=== PATIENT | female | born 1980 ===

== ENCOUNTER 2018-04-14 08:42 | Outpatient (REF) | payer OTHER, SELFPAY ==
[2018-04-14 19:28] LABS: Cholesterol 171 mg/dL (50-200); Glucose 87 mg/dL (70-100); HDL Cholesterol 72 mg/dL (40-60); LDL CHOLESTEROL 86 mg/dL (<100); Triglyceride 98 mg/dL (30-150)
== END 2018-04-14 08:43 ==
LOC: NCHCN 08:42
PROVIDERS: PCP Internal Medicine; Visit Provider Nurse Practitioner Family
DX: Z00.00 Encounter for general adult medical examination without abnormal findings (principal); Z13.220 Encounter for screening for lipoid disorders; Z13.1 Encounter for screening for diabetes mellitus
CPT/HCPCS: 80061; 82947; 83721

== ENCOUNTER 2020-10-17 19:26 | Outpatient (REF) | payer OTHER, SELFPAY ==
--- OUTSIDE RECORDS SUMMARY | 2020-10-17 19:33 | XMS_ITS ---
:1980 Author Care Team Providers Name Role Phone ROXIE BIRMINGHAM MD Primary Care Provider [phone] PANCHITOJEFERSON MENDOZA High Speed Warper Tender [phone] Allergies Code Code System Name Reaction Severity Status Onset 258 RxNorm Clindamycin Rash ? Active ? Medications Name Status Start Date Stop Date ? ? Cenestin 0.45 mg tablet Completed 07/28/2008 01/08/20 09 1 (one) Tablet: Daily CitraNatal Assure 35 mg-1 mg-50 mg-300 mg oral pack Completed 06/06/2009 06/01/2011 One Misc: Daily Cleocin HCl 300 mg capsule Completed 07/06/200501/03 1 (one) Capsule: BID clonazepam 0.5 mg tablet Active ? Not magaly ilable Take 1 tablet 3 times a day by oral route. dicloxacillin 500 mg capsule Completed 05/18/2010 1 (one) Capsule: Four times daily Imitrex 100 mg tablet Active ? Not availa ble Take as needed by oral route. Mircette (28) 0.15 mg-0.02 mg (21)/0.01 mg (5) tablet Completed 07/06/2005 07/06/2005 1 Tablet: daily Mirena 20 mcg/24 hours (6 yrs) 52 mg intrauterine device Active ? Not available Take by intrauterine route. prochlorperazine Active ? Not available zolpidem 5 mg tablet Active ? Not availab le Take 1 tablet every day by oral route as needed. Problems Name Status Onset Date Source ? Insomnia Active ? History Replacement of Intrauterine Contraceptive Unknown ? History Device Intrauterine Device Check Unknown ? Histor y Evaluation Procedure Unknown ? History Procedure by Method Unknown ? History Procedures Date Name Performed by ? 04/16/2010 Delivery Information not avai lable Notes: Breech twins 08/10/2009 Transfer of Embryo Information not avai lable 09/02/2001 Breast Biopsy Information not avai lable 06/19/2019 MAMMO, Screening, Tomosynthesis, [facility] Radiology (Internal) Bilateral [address] [place], [place] [id number] (Work Place) Results Lab Results Date Name Specimen Result Interpretation Description Value Range Status Address ? 09/23/2020 Pathology Study TISS ? Report (see ? [facility] below) Hospital L ab (Internal) : [address] 09/23/2020 Pap Test, MISC ? Hpv see ? Final [facility] Thinprep, report Hospita l Lab Cervical (Interna l): [address] ? ? MISC ? Pap see ? Final [facility] report Hospital L ab (Internal) : [address] ? ? MISC ? Report (see ? Final [facility] below) Hospital L ab (Internal) : [address] 06/19/2019 Pap Test, MISC - Hpv see ? Final [facility] Thinprep, report Hospita l Lab Cervical (Interna l): [address] ? ? MISC - Pap see ? Final [facility] report Hospital L ab (Internal) : [address] ? ? MISC - Report (added) ? Corrected [facility] results Hospital Lab below (Internal) : [address] 01/25/2017 Venipuncture BLD ? Venpn* ? ? Final [facility] Hospital L ab (Internal) : [address] 01/25/2017 Glucose, Serum S ? g/r 87 mg/dL 74- [facility] or Plasma 106 [facility] l Lab mg/ (Internal) : dL [address] 01/25/2017 Lipid Panel, S ? Chol 144 mg/dL 50- [facility] Serum 200 Hospital L ab mg/ (Internal) : dL [address] ? ? S ? Trig 65 mg/dL 10- [facility] 150 Hospital L ab mg/ (Internal) : dL [address] ? ? S ? Hdl 56 mg/dL 40- [facility] 60 Hospital L ab mg/ (Internal) : dL [address] ? ? S ? Ldl 75 mg/dL 0-1 Final [facility] 30 Hospital L ab mg/ (Internal) : d[address] Past Encounters 09/23/2020 Atypical Squamous Cells of Undetermined Significance on Cervical Papanicolaou Smear Julien Myers MD: [address] [place] [address], Ph. 07/01/2020 Gynecologic Examination; Insomnia Julien Myers MD: [address] [place] [address], Ph. 06/19/2019 Gynecologic Examination; Screening Mammo graphy Julien Myers MD: [address] [place] [phone], Ph. Social History Tobacco Smoking Status Never Smoker Vaccine List Vaccine Type COVID-19, mRNA, LNP-S, PF, 100 mcg/0.5 m L dose 09/05/2020?0.5 mL 10/03/2020?0.5 mL influenza, seasonal, injectable 06/02/2009 influenza, seasonal, injectable, preserv ative free 08/10/2010?0.5 mL novel [id number], all formulation s 06/02/2009 rubella Td (adult), adsorbed 09/02/1997 Tdap 08/10/2010?0.5 mL varicella Plan of Care Reminders Provider Appointments None ? ? recorded. Lab None ? ? recorded. Referral None ? ? recorded. Procedures None ? ? recorded. Surgeries None ? ? recorded. Imaging None ? ? recorded. Vitals 09/23/2020 02:30PM Procedure 20 Weight Blood Pressure 61.1 kg 112/68 mm[Hg] 07/01/2020 11:20AM HME 20 Weight Blood Pressure 59.92 kg 108/64 mm[Hg] 06/19/2019 11:20AM HME 20 Height Weight BMI Blood Pressure 170.18 cm 61.28 kg 21.2 kg/m2 106/68 mm[Hg] 04/25/2018 01:40PM HME 20 Height Weight BMI Blood Pressure 170.18 cm 62.32 kg 21.5 kg/m2 102/68 mm[Hg] 11/23/2016 Height Weight Blood Pressure 170.82 cm 63.5 kg 118/64 mm[Hg] 02/04/2015 Height Weight Blood Pressure 170.82 cm 60.78 kg 104/60 mm[Hg] 08/07/2013 Height Weight Blood Pressure 170.82 cm 62.14 kg 106/66 mm[Hg] 07/04/2012 Height Weight Blood Pressure 170.82 cm 56.7 kg 110/64 mm[Hg] 08/30/2011 Height Weight Blood Pressure 170.82 cm 56.7 kg 108/70 mm[Hg] 06/01/2011 Height Weight Blood Pressure 170.82 cm 56.7 kg 98/58 mm[Hg] 05/29/2010 Height Weight Blood Pressure 170.82 cm 64.64 kg 90/58 mm[Hg] 09/14/2009 Height Weight Blood Pressure 170.82 cm 64.64 kg 106/66 mm[Hg] 03/09/2009 Height Weight Blood Pressure 170.82 cm 66.22 kg 102/60 mm[Hg] 02/06/2008 Weight Blood Pressure 65.32 kg 102/60 mm[Hg] 01/31/2007 Height Weight Blood Pressure 170.18 cm 63.5 kg 100/62 mm[Hg] 08/07/2006 Weight Blood Pressure 65.77 kg 112/60 mm[Hg] 01/04/2006 Height Weight Blood Pressure 170.18 cm 66.22 kg 104/60 mm[Hg] 12/08/2004 Height Weight Blood Pressure 170.18 cm 65.77 kg 110/70 mm[Hg]
--- OUTSIDE RECORDS SUMMARY | 2020-10-17 19:33 | XMS_ITS | Encounter Summary ---
:1980 Author Care Team Providers Name Role Phone Jhony Naidu MD Primary Care Provider [phone] Kasia Rosario Desk Operator [phone] Reason for Visit procedure Team Primary Care Physician Declined; Consent form signed Assessment and Plan 1. Atypical squamous cells of un determined significance on cervical Papanicolaou smear Since her last Pap was about 3 months ago, we will do a repeat with a colposcopy today. We will call her with the pathology and Pap smear results. I also will discuss advised follow-up at that t jenna. ? pap test, thinprep, cervic al ? colposcopy with biopsy and endocervical curettage (PROC) Discussion Note: None recorded.Patient educational handouts: No information available. Plan of Care Reminders Provider Appointments e 20 Julien Rey MD 07/07/2021 11:00AM Lab Pap Test, [facility] juan alberto Thinprep, Cervical 09/23/2020 Hospital Lab (Internal) Referral None recorded. ? ? Procedures Colposcopy with ? Biopsy and Endocervical 09/23/2020 Curettage (PROC) Surgeries None recorded. ? ? Imaging None recorded. ? ? Medications Name Start Date ? ? clonazepam 0.5 mg tablet ? Take 1 tablet 3 times a day by oral route. Imitrex 100 mg tablet ? Take as needed by oral route. Mirena 20 mcg/24 hours (6 yrs) 52 mg intrauterine haroldo ce ? Take by intrauterine route. prochlorperazine ? zolpidem 5 mg tablet ? Take 1 tablet every day by oral route as needed. Medications Administered None recorded. Vitals Weight Blood Pressure 134.7 lbs 112/68 mm[Hg] Results Lab Results Date Name Specimen Result Interpretation Description Value Range Status Address ? 09/23/2020 Pap Test, MISC ? Hpv see ? Final [facility] Thinprep, report Hospita l Lab Cervical (Interna l): [address] [place] [address] ? ? MISC ? Pap see ? Final [facility] Hospital L ab (Internal) : [address] [place] [address] ? ? MISC ? Report (see ? Final [place] [facility] below) Hospital ab (Internal) : [address] [place] [address] Allergies Code Code System Name Reaction Severity Onset 2582 RxNorm Clindamycin Rash ? ? Problems Name Status Onset Date Source ? Insomnia Active ? History Procedures Date Name Performed by ? 04/16/2010 Delivery Information not avai lable Notes: Breech twins 08/10/2009 Transfer of Embryo Information not avai lable 09/02/2001 Breast Biopsy Information not avai lable Vaccine List Vaccine Type COVID-19, mRNA, LNP-S, PF, 100 mcg/0.5 m L dose 09/05/2020?0.5 mL 10/03/2020?0.5 mL influenza, seasonal, injectable 06/02/2009 influenza, seasonal, injectable, preserv ative free 08/10/2010?0.5 mL novel [id number], all formulation s 06/02/2009 rubella Td (adult), adsorbed 09/02/1997 Tdap 08/10/2010?0.5 mL varicella Social History Tobacco Smoking Status Never Smoker Live alone or with others? with others Diet REGULAR Alcohol intake Occasional Number of children 2 Are you currently employed? Y Education 2 Year College Chewing tobacco none Most Recent Tobacco Use Screening 04/25/2018 Performs monthly self-breast exam N General stress level Medium Caffeine intake Moderate Exercise level Moderate Occupation [employer] Relationship Status Family History Relation Problem Onset Age of Age Notes Mother Migraine (No N/A (No Notes) Information) Mother Hypertensive disorder (No N/A (No No rose) Information) Father Crohn's disease (No N/A (No Notes) Information) Functional Status Unknown. Past Encounters 09/23/2020 Atypical Squamous Cells of Undetermined Significance on Cervical Papanicolaou Smear Julien Myers MD: [address] [place] [phone], Ph. History of Present Illness Note: <p>Her last two Pap smears, in June 2019 and June 2020, were both ASCUS/negative. She is here for a colposcopy today.</p> Review of Systems None recorded. Physical Exam ? Notes: <p>After discussing the proc edure with the patient, I did a speculum exam. I did the Pap smear. I then ap plied acetic acid to the cervix. I was not able to see the entire transformatio n zone. I could see the IUD strings approximately 3 cm from the cervix. I init dannielle did an endocervical curettage. Minimal tissue return. As I was doin g the ECC, I noted that there was some thickened white epithelium from approx imately 10:00 to 1:00 on the face of the cervix. I did a biopsy at 12:00. I use d Monsel solution to obtain hemostasis. She tolerated this well.
</p>
[2020-10-17 19:58] LABS: Abs Immature Grans 0.02 10^3/uL (0.0-0.06); Absolute Basophil Count 0.09 10^3/uL (0.0-0.2); Absolute Eosinophil Count 0.08 10^3/uL (0.0-0.7); Absolute Lymphocyte Count 1.85 10^3/uL (1.2-3.4); Absolute Monocyte Count 0.56 10^3/uL (0.1-0.8); Basophils % 1.3; Eosinophils % 1.1; HCT 38.9 % (36.0-46.0); HGB 12.9 g/dL (11.2-15.7); Immature Grans % 0.3; Lymphocytes % 25.7; MCH 32.2 pg (27.0-33.0); MCHC 33.2 % (32.0-36.0); MPV 10.2 fL (8.0-11.0); Monocytes % 7.8; Neutrophils % 63.8; Nucleated RBC 0 %; Platelet Count 291 10^3/uL (130-400); RBC 4.01 10^6/uL (3.93-5.22); RDW 11.9 % (11.7-14.6); RDW-SD 42.8 fL
[2020-10-17 20:28] LABS: Anion Gap 9.3 mmol/L (3-11); BUN 17 mg/dL (7-18); CO2 26.7 mmol/L (21.0-32.0); CREATININE 0.7 mg/dL (0.55-1.02); Calcium 9.5 mg/dL (8.5-10.1); Chloride 103 mmol/L (98-107); Glucose 92 mg/dL (74-106); Potassium 4.3 mmol/L (3.5-5.1); Sodium 139 mmol/L (136-145)
== END 2020-10-17 19:27 | disposition home or self-care (01) ==
LOC: NCHCN 19:26
PROVIDERS: PCP Nurse Practitioner Family; Visit Provider Physician Assistant
DX: Z01.818 Encounter for other preprocedural examination (principal)
CPT/HCPCS: 80048; 85025

== ENCOUNTER 2024-07-13 18:20 | Outpatient (REF) | payer MEDICAID, SELFPAY ==
--- NOTE | 2024-07-13 14:00 | SKI_PTH ---
PATIENT: Anabell Talley LOC: [facility] U#:[id number] AGE/SX: 44/F ROOM: RE07/13/[address]: Odalis Allison : 1980 BED: DIS: 07/13/2024 SPEC #: [id number] RECD: 07/13/24 18:34 STATUS: SELAM REQ #: [id number] JERONIMO: 07/13/24 14:[address] RECD BY: Evelia Barbosa ENTERED: 07/13/24 18:35 SP TYPE: MAYITO ALEGRIA DR: Sandy Hernadez Tissues: 1 - SKIN BIOPSY(SHAVE/PUNCH) Procedures: SKIN LEVEL 4 Comments: [id number]
--- OUTSIDE RECORDS SUMMARY | 2024-07-13 18:22 | XMS_ITS | Continuity of Care Document ---
Author Organization [facility] Address [address] [place] [address] Care Team Providers Care Gun Profiler Name Role Phone [facility], Jhony Joshi Primary Care Physician [facility]/20/24 - 03/20/[address] [address] Encounter Diagnosis Screening mammogram for breast cancer(Discharge Diagnosis) - 03/20/24 Discharge Disposition: Home or Self Care Attending Physician: Julien Myers MD Admitting Physician: Julien Myers MD Referring Physician: Julien Myers MD Allergies, Adverse Reactions, Alerts Substance Reaction Severity Status clindamycin Unknown Active clindamycin Skin rash Unknown Active Assessment and Plan Future Appointments Immunizations Given and Recorded Vaccine Date Status Refusal Reason SARS-CoV-2 (COVID-19) mRNA-1273 vaccine 10/03/20 R ecorded SARS-CoV-2 (COVID-19) mRNA-1273 vaccine 09/05/20 R ecorded influenza virus vaccine, inactivated 08/10/10 Sal rded influenza virus vaccine, inactivated 06/02/09 Sal rded tetanus/diphth/pertuss (Tdap) adult/adol 08/10/10 Recorded Novel [id number], all formulation 06/02/09 Recorded tetanus-diphth toxoids (Td) adult/adol 09/02/97 Re corded rubella virus vaccine 09/02/00 Recorded varicella virus vaccine 09/02/00 Recorded Medications cloBAZam 0 Refill(s) Start Date: 11/16/22 Status: Ordered estradiol 0.0375 mg/24 hours twice weekly transdermal film, extended release See Instructions, change patch twice a week, # 24 patches, 3 Refill(s), Pharmacy: [id number], 62.4, kg, 01/17/24 14:41:00 EDT, Weight Dosing Start Date: 01/17/24 Status: Ordered Mirena 52 mg intrauteral device 52 mg 1 EA, 0 Refill(s) Start Date: 11/16/22 Status: Ordered Vitamin B12 0 Refill(s) Start Date: 12/06/23 Status: Ordered Vitamin D3 0 Refill(s) Start Date: 12/06/23 Status: Ordered Problem List Condition Confirmation Course Effective Dates Status H ealth Status Informant Branchial cleft Confirmed Active Disturbance of sleep Confirmed Active History of meningitis Confirmed Active IUD contraception Confirmed Active Menopausal symptoms Confirmed Active Migraine headache Confirmed Active Anxiety with depression Confirmed Active Pain in neck Confirmed Active Procedures Procedure Date Related Diagnosis Body Site Status Pap Due - 12/2026 1 01/16/24 Co mpleted Colposcopy 2 09/15/20 Completed delivery 3 04/15/10 Compl eted Embryo transfer 08/09/09 Completed Breast biopsy sample 09/01/01 Comp leted 1Pap Due - 12/2026 02/04/15 Neg/Neg 06/19/19 ASCUS/Neg 07/01/20 ASCUS/Neg 09/16/20 ASCUS/ Neg 09/23/20 - Colpo - Benign 08/17/21 ASCUS/Neg 01/17/24 - Neg/Neg (5 year risk of CIN3+ is 0.31%??) 2Benign 3Breech Twins Social History Social History Type Response Tobacco Never tobacco user T obacco Use:. Sex Female Patient Care team information Care Team Personnel Name: [facility] Position: No Access Member Role: Primary Care Physician Address: Address: [address] [address]- Care Team Related Persons Name: SILVIA BURTON Address: Home [address] [place] [phone] Address: Mailing [address] [place] [phone] Name: EUNICE KABA
--- OUTSIDE RECORDS SUMMARY | 2024-07-13 18:22 | XMS_ITS | Referral Summary ---
Author Organization [facility] Address [address] [place] [address] Care Team Providers Care Education Associate Name Role Phone Jhony Naidu MD Primary Care Provider Social History Tobacco Use Types Packs/Day Years Used Date Smoking Tobacco: Never Assessed Comments Unknown Sex and Gender Information Value Date Recorded Sex Assigned at Not on file Legal Sex Female 18:18 EST Gender Identity Not on file Sexual Orientation Not on file Plan of Treatment Not on file Care Teams Education Associate Relationship Specialty Start Date End Date Jhony Naidu MD [address] [place] [address] PCP - General 10/19/09
--- OUTSIDE RECORDS SUMMARY | 2024-07-13 18:22 | XMS_ITS | Encounter Summary ---
Author Organization [facility] Address [address] [place] [address] Care Team Providers Care Rotating Field Assembler Name Role Phone Jhony Naidu MD Primary Care Provider [phone] Encounter Details Date Type Department Care Team (Late st Contact Info) Description 09/26/2020 Lab Requisition [facility] Pathology & Laboratory Medicine - [facility] [address] [place] [address] Julien Myers MD [address] [place] [address] [address] [place] [address] Encounter for other general examination Social History Tobacco Use Types Packs/Day Years Used Date Smoking Tobacco: Never Assessed Comments Unknown Sex and Gender Information Value Date Recorded Sex Assigned at Not on file Legal Sex Female 18:18 EST Gender Identity Not on file Sexual Orientation Not on file documented as of this encounter Plan of Treatment Not on file documented as of this encounter Procedures Procedure Name Priority Date/Time Associated Diagnosis Comments SURGICAL PATHOLOGY Today 09/23/2020 14 :58 EST documented in this encounter Results * SURGICAL PATHOLOGY (09/23/2020 14:58 EST) Final Diagnosis A. ENDOCERVIX, CURETTAGE: - Minute fragments of benign superficial squamous epithelium. - No evaluable glandular tissue present. B. CERVIX, 12 O'CLOCK, BIOPSY: - Squamous tissue with reactive atypia. 09/29/2020 10:01 [facility] Diagnosis Comment Strategic Accounts Manager slides of this case were reviewed at the intradepartmental consultation conference. 09/29/2020 10:01 [facility] Attestation By the signature below, the attending physician certifies that they have 1) personally conducted a gross and/or microscopic examination of the described specimen(s), and/or personally interpreted the results of laboratory testing of the described specimen(s), and 2) personally rendered or confirmed the above diagnosis. 09/29/2020 10:01 [facility] at 1001 Clinical History ASCUS Pap x2 09/29/2020 10:01 [facility] Gross Description A. Received in formalin labelled with proper patient identification (initials H, T) and not otherwise specified is an aggregate of a scant amount of white soft tissue (less than 0.1 by less than 0.1 by less than 0.1 cm). Entirely submitted in A1. B. Received in formalin labelled with proper patient identification (initials H, T) and not otherwise specified is a white-cm soft tissue (0.5 x 0.4 x 0.3 cm), and an aggregate of a scant amount of white soft tissue admixed with clear mucus (0.4 x 0.4 x 0.2 cm). The tissue is submitted intact in B1, and the aggregate is entirely submitted in B2. Gus Booker 09/27/2020 9:12 09/29/2020 10:01 [facility] Performing Lab [facility] 09/29/2020 10:01 [facility] Scanned Images 09/29/2020 10:01 [facility] Tissue ENTIRE WALL OF CERVIX / Unknown 09/23/2020 14:58 EST 09/26/2020 22:01 EST Tissue specimen (specimen) CERVIX UTERI STRUCTURE / Unknown 09/23/2020 14:58 EST 09/26/2020 22:01 EST us Julien Myers MD PATHOLOGY ORDERABLES Final Resul t [facility] [address] [place] [address] documented in this encounter Visit Diagnoses Diagnosis Encounter for other general examination documented in this encounter Care Teams Rotating Field Assembler Relationship Specialty Start Date End Date Jhony Naidu MD [address] [place] [address] PCP - General 10/19/09 documented as of this encounter
--- OUTSIDE RECORDS SUMMARY | 2024-07-13 18:22 | XMS_ITS | Encounter Summary ---
Author Organization [facility] Address [address] [place] [address] Care Team Providers Care Film Archivist Name Role Phone Jhony Naidu MD Primary Care Provider [phone] Bisi Andrew MD Primary Care Provider [phone] Encounter Details Date Type Department Care Team (Late st Contact Info) Description 01/31/2007 Results Only [facility] conversion [address] [place] [address] Lindsay Myers MD [address] [place] [address] [address] [place] [address] Social History Tobacco Use Types Packs/Day Years [...] Procedure Name Priority Date/Time Associated Diagnosis Comments CYTOPATHOLOGY Routine 01/31/2007 0:00 EDT documented in this encounter Results * CYTOPATHOLOGY (01/31/2007 0:00 EDT) Pathology Report: CYTOPATHOLOGY REPORT Reports generated via electronic interface contain original data; however they are lacking the format of the original report. Caution should be taken when reading/interpreti ng unformatted reports. Name: ? ANABELL BURTON ? Accession #: ? [id number] : ? 1980 (Age: 26) ??F ?Collect Date: ? 01/31/2007 Location: ? [facility] ? Receive Date: ? 02/03/2007 Provider: ?LINDSAY MYERS MD Copy to: ? Specimen/Source: ?ThinPrep Pap Test, Cervix/Endocervix, processed on [employer] ThinPrep Imaging System, with manual evaluation Last Menstrual Period: ? 01/19/07 Other: ? HPVA - HPV testing requested if ASC-US on the current ThinPrep Pap test. Additional clinical information: Previous paps WNL ? SPECIMEN ADEQUACY ? Satisfactory for Evaluation - transformation zone component present GENERAL CATEGORIZATION ? Negative for Intraepithelial Lesion or Malignancy ? Document reviewed and electronically signed by: ? JADEN Taylor(ASCP) ? Report Date: ??02/05/2007 11:06 End of Report [facility] 01/31/2007 02/03/2007 us Lindsay Myers MD PATHOLOGY ORDERABLES Final Resul t [facility] [address] [place] [address] documented in this encounter Visit Diagnoses Not on filedocumented in this encounter Care Teams Film Archivist Relationship Specialty Start Date End Date Jhony Naidu MD [address] [place] [address] PCP - General 10/19/09 Bisi Andrew MD [address] [place] [address] PCP - General 10/17/09 10/18/09 documented as of this encounter
--- OUTSIDE RECORDS SUMMARY | 2024-07-13 18:22 | XMS_ITS | Continuity of Care Document ---
Author Organization [facility] Address [address] [place] [address] Care Team Providers Care Gang Punch Operator Name Role Phone [facility] Primary [facility] Physician [facility] 12[facility]21/22 - 12/21/[address] [address] Encounter Diagnosis Screening mammogram for breast cancer(Discharge Diagnosis) - 12/21/22 Discharge Disposition: Home or Self Care Attending [...] rded tetanus/diphth/pertuss (Tdap) adult/adol 08/10/10 Recorded Novel [id number]-[id number], all formulation 06/02/09 Recorded tetanus-diphth toxoids (Td) adult/adol 09/02/97 Re corded rubella virus vaccine 09/02/00 Recorded varicella virus vaccine 09/02/00 Recorded Medications cloBAZam 0 Refill(s) Start Date: 11/16/22 Status: Ordered estradiol 0.025 mg/24 hours weekly transdermal film, extended release 1 patches, Topical, every week, Apply 1 patch every week by transdermal route., # 4 patches, 3 Refill(s), Pharmacy: [id number] Start Date: 12/13/22 Status: Ordered Mirena 52 mg intrauteral device 52 mg 1 EA, 0 Refill(s) Start Date: 11/16/22 Status: Ordered Problem List Condition Confirmation Course Effective Dates Status Health [facility] Informant Menopausal symptoms Confirmed Active Procedures Procedure Date Related Diagnosis Body Site Status Colposcopy 1 09/15/20 Completed delivery 2 04/15/10 Compl eted Embryo transfer 08/09/09 Completed Breast biopsy sample 09/01/01 Comp leted Due 08/2024 3, 4 Complete d 1Benign 2Breech Twins Neg/Neg 06/19/19 ASCUS/Neg 07/01/20 ASCUS/Neg 09/16/20 ASCUS/ - HR HPV Colpo benign 08/17/21 ASCUS/Neg 4Due 08/2024 Social History Social History Type Response Tobacco Never tobacco user T obacco Use:. Sex Female Patient Care team information Care Team Personnel Name: Jhony Friend MD Position: Physician Member Role: Primary Care Physician Address: Address: [address] [place] [phone] [place]
--- OUTSIDE RECORDS SUMMARY | 2024-07-13 18:22 | XMS_ITS | Encounter Summary ---
Author Organization [facility] Address [address] [place] [address] Care Team Providers Care Technical Producer Name Role Phone Jhony Naidu MD Primary Care Provider [phone] Encounter Details Date Type Department Care Team (Latest Contact Info) Description 08/17/2021 Lab Requisition [facility] Pathology & Laboratory Medicine - [facility] [address] [place] [address] Julien Myers MD [address] [place] [address] [address] [place] [address] Encounter for gynecological examination (general) (routine) without abnormal findings; Atypical squamous cells of undetermined significance on cytologic smear of cervix (ASC-US) Social History Tobacco Use Types Packs/Day Years [...] Procedure Name Priority Date/Time Associated Diagnosis Comments PAP TEST Today 08/17/2021 16:57 EST HPV DNA DETECTION WITH GENOTYPING, PCR Today 08/17/2021 16:57 EST documented in this encounter Results * HUMAN PAPILLOMAVIRUS (HPV) DETECTION-HIGH RISK TYPES (08/17/2021 16:57 EST) HPV other High Risk types, PCR Negative Negative 08/31/2021 7:17 [facility] Comment:No E6 or E7 mRNA is detected from HPV types 16,18,31,33,35,39,45,51,52,56,58,59,66, and 68 by tube washer mediated amplification. Papanicolaou smear specimen (specimen) CERVIX UTERI STRUCTURE / Unknown 08/17/2021 16:57 EST 08/29/2021 13:17 EST us Julien Myers MD MICROBIOLOGY - GENERAL ORDERABLE S Final Result [facility] [address] [place] [address] * PAP TEST (08/17/2021 16:57 EST) Specimens A. Cervix and/or Endocervix , ThinPrep Imaging System with Manual Evaluation 08/31/2021 7:17 [facility] Specimen Adequacy Satisfactory for Evaluation - transformation zone component present 08/31/2021 7:17 [facility] General Categorization Epithelial Cell Abnormality 08/31/2021 7:17 [facility] Descriptive Diagnosis Squamous Cell Abnormality - Atypical squamous cells, undetermined significance (ASC-US). 08/31/2021 7:17 [facility] Educational Comments [facility] recommends following ASCCP's 2012 Updated Consensus Guidelines for the Management of Abnormal Cervical Cancer Screening Tests and Cancer Precursors (JLGTD, 2013; 17(5):S1-S27). Consensus guidelines are available online at www.asccp.org. 08/31/2021 7:17 [facility] Attestation By the signature below, the attending physician certifies that they have personally conducted a gross and/or microscopic examination of the described specimens and rendered or confirmed the above diagnosis. 08/31/2021 7:17 [facility] at 0717 Clinical History Clinical History, Signs, Symptoms, Chief Complaint, Pertaining to This Order: SEE BELOW Hormone/Contrace ptive Use?: Yes Other Clinical History/Order Comments: 09/22 COLPO BENIGN /ASCUS NEG, 06/21 ASCUS NEG, 06/20 ASCUS NEG, 02/14 NEG/NEG 08/31/2021 7:17 EST [facility] HPV The result for the Human Papillomavirus (HPV) Detection-High Risk Types is Negative. No E6 or E7 mRNA is detected from HPV types 16,18,31,33,35,3 9,45,51,52,56,58 ,59,66, and 68 by tube washer mediated amplification.Te sting was performed on specimen [id number] and was resulted on 08/31/2021 0713 EST by KYRIE, LAB INSTRUMENT RESULTS IN 08/31/2021 7:17 EST [facility] Performing Lab [facility] 08/31/2021 7:17 EST [facility] Scanned Images 08/31/2021 7:17 EST [facility] Papanicolaou smear specimen (specimen) CERVIX UTERI STRUCTURE / Unknown 08/17/2021 16:57 EST 08/21/2021 14:51 EST us Julien Myers MD PATHOLOGY ORDERABLES Final Resul t [facility] [address] [place] [address] documented in this encounter Visit Diagnoses Diagnosis Encounter for gynecological examination (general) (routine) without abnormal findings Atypical squamous cells of undetermined significance on cytologic smear of cervix (ASC-US) Papanicolaou smear of cervix with atypical squamous cells of undetermined significance (ASC-US) documented in this encounter Care Teams Technical Producer Relationship Specialty Start Date End Date Jhony Naidu MD [address] [place] [id number] PCP - General 10/19/09 documented as of this encounter
--- OUTSIDE RECORDS SUMMARY | 2024-07-13 18:22 | XMS_ITS | Encounter Summary ---
Author Organization [facility] [place] [address] Care Team Providers Care Prep Cook Name Role Phone Sandy Hernadez CALLY Primary Care Provider + Reason for Visit * Reason Onset Date Comments Public Health Screening 10/13/2020 Encounter Details Date Type Department Care Team (Late st Contact Info) Description 10/13/2020 Telephone Primary Care at [facility] [address] [place] [phone] Chelsea Michael RN Public Health Screening Social History Tobacco Use Types Packs/Day Years Used Date Smoking Tobacco: Never Assessed Sex and Gender Information Value Date Recorded Sex Assigned at Not on file Gender Identity Not on file Sexual Orientation Not on file documented as of this encounter Miscellaneous Notes * Telephone Encounter - Chelsea Michael RN - 10/13/2020 2:29 PM EST Order faxed to [place], [place] covid office. [facility] states they can do the test and have results to us by 10/31. * Telephone Encounter - Chelsea Michael RN - 10/13/2020 2:25 PM EST ----- Message from KJ Johnston sent at 10/13/2020 2:04 PM EST ----- Good Afternoon This patient needs a covid test scheduled for 10/28 for surgery on 11/01. Thank You Sonia documented in this encounter Plan of Treatment Not on file documented as of this encounter Visit Diagnoses Diagnosis Encounter for preprocedure screening laboratory testing for COVID-19 documented in this encounter Care Teams Prep Cook Relationship Specialty Start Date End Date Sandy Hernadez APRN PCP - General Family Medicine 09/12/20 documented as of this encounter
--- OUTSIDE RECORDS SUMMARY | 2024-07-13 18:22 | XMS_ITS | Encounter Summary ---
Author Organization [facility] Address [address] [place] [address] Care Team Providers Care Dry Box Operator Name Role Phone Jhony Naidu MD Primary Care Provider [phone] Bisi Andrew MD Primary Care Provider + [phone] Encounter Details Date Type Department Care Team (Late st Contact Info) Description 02/06/2008 Results Only [facility] [place] [address] [place] [address] Lindsay Myers MD [address] [place] [address] [address] [place] [address] Social History Tobacco Use Types [...] Priority Date/Time Associated Diagnosis Comments CYTOPATHOLOGY Routine 02/06/2008 0:00 EDT documented in this encounter Results * CYTOPATHOLOGY (02/06/2008 0:00 EDT) Pathology Report: CYTOPATHOLOGY REPORT Reports generated via electronic interface contain original data; however they are lacking the format of the original report. Caution should be taken when reading/interpreti ng unformatted reports. Name: ? ANABELL BURTON ? Accession #: ? [id number] : ? 1980 (Age: 27) ??F ?Collect Date: ? 02/06/2008 Location: ? [facility] ? Receive Date: ? 02/09/2008 Provider: ?LINDSAY MYERS MD Copy to: ? Specimen/Source: ?ThinPrep Pap Test, Cervix/Endocervix, processed on [facility] ThinPrep Imaging System, with manual evaluation Last Menstrual Period: ? 01/11/08 Other: ? HPVA - HPV testing requested if ASC-US on the current ThinPrep Pap test. ? SPECIMEN ADEQUACY ? Satisfactory for Evaluation - transformation zone component present GENERAL CATEGORIZATION ? Negative for Intraepithelial Lesion or Malignancy INTERPRETATION ? Reactive cellular changes associated with inflammation present (includes repair). ? Document reviewed and electronically signed by: ? Lukas Pham MD ? Report Date: ??02/12/2008 13:10 End of Report [facility] 02/06/2008 02/09/2008 us Lindsay Myers MD PATHOLOGY ORDERABLES Final Resul t [facility] [address] [place] [address] documented in this encounter Visit Diagnoses Not on filedocumented in this encounter Care Teams Dry Box Operator Relationship Specialty Start Date End Date Jhony Naidu MD [address] [place] [address] PCP - General 10/19/09 Bisi Andrew MD [address] [place] [address] [place] [address] PCP - General 10/17/09 10/18/09 documented as of this encounter
--- OUTSIDE RECORDS SUMMARY | 2024-07-13 18:22 | XMS_ITS | Encounter Summary ---
Author Organization [facility] [place] [address] [place] [address] Care Team Providers Care Compliance Assistant Name Role Phone Sandy Hernadez CALLY Primary Care Provider + Encounter Details Date Type Department Care Team (Late st Contact Info) Description 01/27/2021 1:50 PM EDT Ancillary Procedure Radiology at [facility] [address] [place] [address] Joey Hoyos MD [address] [place] [address] Social History Tobacco Use Types Packs/Day Years Used Date Smoking Tobacco: Never Smokeless Tobacco: Never Alcohol Use Standard Drinks/Week Comments Yes 7 (1 standard drink = 0.6 oz pur e alcohol) Sex and Gender Information Value Date Recorded Sex Assigned at Not on file Gender Identity Not on file Sexual Orientation Not on file documented as of this encounter Plan of Treatment Not on file documented as of this encounter Procedures Procedure Name Priority Date/Time Associated Diagnosis Comments FILM LIBRARY STORAGE ONLY DX SPINE Routine 01/27/2021 1:47 PM EDT documented in this encounter Results * Film Library- Storage Only DX Spine (01/27/2021 1:47 PM EDT) Narrative [facility] - 01/27/2021 1:47 PM EDT This exam is auto-finalizing. It's purpose is for storage only. Joey Hoyos MD G FILM LIBRARY ORD ERABLES [place], [place] documented in this encounter Visit Diagnoses Not on filedocumented in this encounter Care Teams Compliance Assistant Relationship Specialty Start Date End Date Sandy Hernadez APRN PCP - General Family Medicine 09/12/20 documented as of this encounter
--- OUTSIDE RECORDS SUMMARY | 2024-07-13 18:22 | XMS_ITS | Encounter Summary ---
Author Organization [facility] [place] [address] Care Team Providers Care Casing Sewer Name Role Phone Sandy Hernadez APRN Primary Care Provider + Encounter Details Date Type Department Care Team (Late st Contact Info) Description 10/20/2020 External Results Pre-Admission Testing at [facility] [address] [place] [phone] Social History Tobacco Use Types Packs/Day Years Used Date Smoking Tobacco: Never Assessed Sex and Gender Information Value Date Recorded Sex Assigned at Not on file Gender Identity Not on file Sexual Orientation Not on file documented as of this encounter Plan of Treatment Not on file documented as of this encounter Procedures Procedure Name Priority Date/Time Associated Diagnosis Comments LAB SCAN Routine 10/20/2020 documented in this encounter Results * Scan Doc: Lab (10/20/2020) Historical Provider MD BRADLEY MGR SCAN EX T ORDR/RSLT documented in this encounter Visit Diagnoses Not on filedocumented in this encounter Care Teams Casing Sewer Relationship Specialty Start Date End Date Sandy Hernadez APRN PCP - General Family Medicine 09/12/20 documented as of this encounter
--- OUTSIDE RECORDS SUMMARY | 2024-07-13 18:22 | XMS_ITS | Encounter Summary ---
Author Organization [facility] Address [address] [place] [address] Care Team Providers Care Hosiery Repairer Name Role Phone Jhony Naidu MD Primary Care Provider [phone] Encounter Details Date Type Department Care Team (Late st Contact Info) Description 06/19/2019 Results Only [facility] [phone] Lindsay Myers MD [address] [place] [address] [address] [place] [address] Social History Tobacco Use Types Packs/Day Years [...] Name Priority Date/Time Associated Diagnosis Comments PAP TEST- RESULT ONLY Routine 06/19/2019 0:00 EDT documented in this encounter Results * PAP TEST- RESULT ONLY (06/19/2019 0:00 EDT) Pathology Report: CYTOPATHOLOGY REPORT Reports generated via electronic interface contain original data; however they are lacking the format of the original report. Caution should be taken when reading/interpret ing unformatted reports. Name: ? ANABELL BURTON ? Accession #: ? [id number] ? : ? 1980 (Age: 39) ??F ?Collect Date: ? 06/19/2019 ? Location: ? [facility] ? Receive Date: ? 06/22/2019 ? Provider: LINDSAY MYERS MD Copy to: ? Final Report SPECIMEN ADEQUACY ? Satisfactory for Evaluation - transformation zone component present GENERAL CATEGORIZATION ? Epithelial Cell Abnormality INTERPRETATION ? Squamous Cell Abnormality - Atypical squamous cells, undetermined significance (ASC-US). EDUCATIONAL NOTES/RECOMMENDAT IONS ? [facility] recommends following ASCCP's 2012 Updated Consensus Guidelines for the Management of Abnormal Cervical Cancer Screening Tests and Cancer Precursors (JLGTD, 2013; 17(5):S1-S27). ??Consensus guidelines are available online at www.asccp.org. Hormonal/Contrace ptive status: Intrauterine device Other: Additional clinical information: 02/14 NEG NEG Additional clinical information: Z01.419 Z11.51 Specimen/Source: ??Pap Test, Cervix/Endocervix , ThinPrep Imaging System with manual evaluation Document reviewed and electronically signed by: ? FRANKLIN JARVIS MD ? Report ??Date: 07/04/2019 09:41 HPV with Pap Test ? Date Ordered: ? 07/04/2019 ? Status: ?? Signed Out ?Date Complete: ? 07/07/2019 ? By: ??System Interface ? Date Reported: ? 07/07/2019 ? Interpretation RESULT: Negative for HPV. No E6 or E7 mRNA is detected from HPV types 16,18,31,33,35, 39,45,51,52,56,58 ,59,66, and 68 by wrapping clerk mediated amplification. Comments Document reviewed and electronically signed by: ? System Interface ? Report date: 07/07/2019 By the signature above, the attending physician certifies that he/she has personally conducted a gross and/or microscopic examination of the described specimens and rendered or confirmed the above diagnosis. End of Report [facility] 06/19/2019 06/22/2019 us Lindsay Myers MD PATHOLOGY ORDERABLES Final Resul t [facility] [address] [place] [address] documented in this encounter Visit Diagnoses Not on filedocumented in this encounter Care Teams Hosiery Repairer Relationship Specialty Start Date End Date Jhony Naidu MD [address] [place] [id number] PCP - General 10/19/09 documented as of this encounter
--- OUTSIDE RECORDS SUMMARY | 2024-07-13 18:22 | XMS_ITS | Encounter Summary ---
Author Organization [facility] Address [address] [place] [address] Care Team Providers Care Interactive Media Project Manager Name Role Phone Unavailable Primary Care Provider Unavailabl e Encounter Details Date Type Department Care Team (Late st Contact Info) Description 03/09/2009 Orders Only [facility] Laboratory Services - [facility] ([facility]) [address], [place] [id number] Julien Myers MD [address] [place] [address] [address] [place], [place] [id number] Social History Tobacco Use Types Packs/Day Years [...] Procedure Name Priority Date/Time Associated Diagnosis Comments HPV DETECTION, HIGH RISK TYPES Routine 03/09/2009 23:45 EDT CYTOPATHOLOGY Routine 03/09/2009 0:00 EDT documented in this encounter Results * HUMAN PAPILLOMA VIRUS DNA TEST (03/09/2009 23:45 EDT) Specimen Description Cervix, ThinPrep vial [facility] Result Negative for HPV types 16, 18, 31, 33, 35, 39, 45, 51, 52, 56, 58, 59, and 68. [facility] Report Status Final 03/24/2009 [facility] 03/09/2009 23:4 5 EDT 03/16/2009 23:45 EDT us Julien Myers MD MICROBIOLOGY - GENERAL ORDERABLE S Final Result [facility] [address] [place] [address] * CYTOPATHOLOGY (03/09/2009 0:00 EDT) Pathology Report: CYTOPATHOLOGY REPORT ? Reports generated via electronic interface contain original data; ? however they are lacking the format of the original report. ? Caution should be taken when reading/interpreti ng unformatted reports. ? Name: ? ANABELL BURTON ? Accession #: ? [id number] ? : ? 1980 (Age: 29) ??F ?Collect Date: ? 03/09/2009 ? Location: ? [facility] ? Receive Date: ? 03/11/2009 ? Provider: ?PETER ALISON MD ? Copy to: ? Specimen/Source: ?Pap Test, Cervix/Endocervix, ThinPrep Imaging System ? with manual evaluation ? Last Menstrual Period: ? 6/17/09 ? Other: ? HPVDX - HPV testing requested regardless of diagnosis on current ThinPrep Pap ?? test. ? SPECIMEN ADEQUACY ? Satisfactory for Evaluation ? - transformation zone component present ? GENERAL CATEGORIZATION ? Negative for Intraepithelial Lesion or Malignancy ? Document reviewed and electronically signed by: ? Bree Wiseman, [place](ASCP) ? Report Date: ??03/16/2009 08:11 ? End of Report ? [facility] 03/09/2009 03/11/2009 us Julien Myers MD PATHOLOGY ORDERABLES Final Resul t [facility] [address] [place] [address] documented in this encounter Visit Diagnoses Not on filedocumented in this encounter
--- OUTSIDE RECORDS SUMMARY | 2024-07-13 18:22 | XMS_ITS | Clinical Summary ---
Author Organization [facility] Address [facility] [place] [address] Care Team Providers Care Inside Polisher Name Role Phone Sandy Hernadez Baron ALAMO Primary Care Provider + Allergies Active Allergy Reactions Criticality Noted Date Comments Clindamycin Medium CIS - Rash Medications Medication Sig Dispensed Refills Start Date End Date Status clonazePAM (KlonoPIN) 0.5 mg Tablet TAKE ONE TABLET BY MOUTH EVERY DAY NEEDED 09/27/2020 Active traMADoL (Ultram) 50 mg Tablet Take 50 mg by mouth 2 times daily as needed. 07/19/2020 Active zolpidem (Ambien) 5 mg Tablet Take 5 mg by mouth nightly as needed. 07/09/2020 Active SUMAtriptan (Imitrex) 100 mg Tablet Take 100 mg by mouth 2 times daily as needed. Active levonorgestreL (levonorgestrel) 20 mcg/24 hours (6 yrs) 52 mg IUD Mirena 20 mcg/24 hours (6 yrs) 52 mg intrauterine device Take by intrauterine route. Active prochlorperazine (Compazine) 10 mg Tablet Take 1 tablet by mouth every 8 hours as needed. Active cyclobenzaprine (Flexeril) 10 mg Tablet Take 10 mg by mouth 3 times daily as needed for Muscle spasms. Active VALERIAN ORALIndications:for sleep Take 2 capsules by mouth nightly as needed. Indications: for sleep Active aspirin/acetaminoph en/caffeine (EXCEDRIN MIGRAINE ORAL) Take 1-2 tablets by mouth every 6 hours as needed (migraine). Active Active Problems Problem Noted Date Diagnosed Date Status post cervical spinal fusion 11/01/2020 Social History Tobacco Use Types Packs/Day Years Used Date Smoking Tobacco: Never Smokeless Tobacco: Never Alcohol Use Standard Drinks/Week Comments Yes 7 (1 standard drink = 0.6 oz pur e alcohol) Sex and Gender Information Value Date Recorded Sex Assigned at Not on file Gender Identity Not on file Sexual Orientation Not on file Last Filed Vital Signs Vital Sign Reading Time Taken Comments Blood Pressure 99/62 11/01/2020 1:32 PM EST Pulse 79 11/01/2020 1:15 PM EST Temperature 36.8 ??C (98.2 ??F) 11/01/2020 1:32 PM ES T Respiratory Rate 14 11/01/2020 1:32 PM EST Oxygen Saturation 97% 11/01/2020 1:32 PM EST Inhaled Oxygen Concentration - - Weight 60.8 kg (134 lb) 11/01/2020 8:37 AM EST Height 170.2 cm (5' 7) 11/01/2020 8:37 AM EST Body Mass Index 20.99 11/01/2020 8:37 AM EST Plan of Treatment Health Maintenance Due Date Last Done Comments CT Colonography 1980 Colonoscopy 1980 Colorectal Cancer Screening 1980 FIT DNA 1980 FIT 1980 Sigmoidoscopy (10 year) with FIT yearly 1980 Sigmoidoscopy 1980 HIV screen 02/18/1996 Hepatitis C Screening 02/18/1996 Hepatitis B vaccine (0-59 yrs) (1) 1997 Tetanus/Diphtheria/Pertussis Vaccines (1 - Tdap) 1997 HPV test 02/18/2008 PAP Smear 02/18/2008 Breast Cancer Share Decision Needed 2018 Breast Cancer screening 2018 Covid-19 Vaccine (3 - season) 05/03/202409/2020, 09/05/2020 Influenza (Flu) vaccine (1 o f 1 - Influenza standard series) 05/03/2024 Medical Devices Implanted Type Area Motorcoach Operator Device Identifier Shelf Expiration Date Model / Serial / Lot Graft Bone Filler 1cc Dbm Syringe Putty Vesuvius ([id number]) ([employer]oreq) - [id number] Implanted:Qty: 1 on 11/01/2020 by Joey Hoyos MD at [facility] IMPLANTS Neck [employer] - [employer] 06/01/2022 [id number] / / Cage 3 Screw Spinal [id number] Sa Ti ([id number]) ([employer]ore[employer]) - [id number] Implanted:Qty: 1 on 11/01/2020 by Joey Hoyos MD at [facility] [employer]PL[employer] Neck [employer] [id number] / / Screw Spinal 3.5x14mm Anterior Cervical St Sld Ti ([id number]) ([employer]q) - [id number] Implanted:Qty: 3 on 11/01/2020 by Joey Hoyos MD at [facility] [employer]PL[employer] Neck [employer] - [employer]SET [id number] / / Explanted Type Area Motorcoach Operator Device Identifier Shelf Expiration Date Model / Serial / Lot Pin Distraction 14mm Ant Cerv Fusn Ti ([id number]) - [id number] Explanted:Qty: 1 on 11/01/2020 at [facility] IMPLANTS Neck [employer] DP-14-TY / / Pin Distraction 14mm Ant Cerv Fusn Ti ([id number]) - [id number] Explanted:Qty: 1 on 11/01/2020 at [facility] [employer]PL[employer] Neck [employer] DP-14-TY / / Advance Directives * Attempt Cardiopulmonary Resuscitation - Inpatient (Latest Code Status on File) Date Activated Date Inactivated Comments 11/01/2020 9:37 AM 11/01/2020 6:53 PM Question Answer Comments Code Status decision made by: Patient Care Teams Inside Polisher Relationship Specialty Start Date End Date Sandy Hernadez APRN PCP - General Family Medicine 09/12/20
--- OUTSIDE RECORDS SUMMARY | 2024-07-13 18:22 | XMS_ITS | Encounter Summary ---
Author Organization [facility] [place] [address] Care Team Providers Care Permit Agent Name Role Phone Sandy Hernadez CERAMICS TEST ENGINEER Primary Care Provider + Encounter Details Date Type Department Care Team (Late st Contact Info) Description 12/06/2020 Ancillary Procedure Radiology at [facility] [address] [place] [phone] Joey Hoyos MD [address] [place] [address] Social History Tobacco Use Types Packs/Day Years [...] FILM LIBRARY STORAGE ONLY DX SPINE Routine 12/06/2020 12:00 AM EDT documented in this encounter Results * Film Library- Storage Only DX Spine (12/06/2020 12:00 AM EDT) Narrative [facility] - 12/07/2020 3:49 PM EDT This exam is auto-finalizing. It's purpose is for storage only. Joey Hoyos MD G FILM LIBRARY ORD ERABLES [place], [place] documented in this encounter Visit Diagnoses Not on filedocumented in this encounter Care Teams Permit Agent Relationship Specialty Start Date End Date Sandy Hernadez APRN PCP - General Family Medicine 09/12/20 documented as of this encounter
--- OUTSIDE RECORDS SUMMARY | 2024-07-13 18:22 | XMS_ITS | Continuity of Care Document ---
Author Organization [facility] Address [address] [place] [address] Care Team Providers Care Chief Wheelage Clerk Name Role Phone [facility], Jhony Joshi Primary Care Physician Encounter [id number] Date(s): 01/17/24 - 01/17/[address] [id number] Discharge Disposition: Home or Self Care Attending Physician: Julien Myers MD Admitting Physician: Julien Myers MD Referring Physician: Julien Myers MD Allergies, Adverse Reactions, Alerts Substance Reaction Severity Status clindamycin Unknown Active clindamycin Skin rash Unknown Active Assessment and Plan Future Appointments Diagnostic Tests Pending * PAP Test [facility] 01/17/24 Future Scheduled Tests Radiology* [facility] Mammo Screening Bilateral w/ Nelson 01/17/24 Immunizations Given and Recorded Vaccine Date Status Refusal Reason SARS-CoV-2 (COVID-19) mRNA-1273 vaccine 10/03/20 R ecorded SARS-CoV-2 (COVID-19) mRNA-1273 vaccine 09/05/20 R ecorded influenza virus vaccine, inactivated 08/10/10 Sal rded influenza virus vaccine, inactivated 06/02/09 Sal rded tetanus/diphth/pertuss (Tdap) adult/adol 08/10/10 Recorded Novel [id number], all formulation 06/02/09 Recorded tetanus-diphth toxoids (Td) adult/adol 09/02/97 Re corded rubella virus vaccine 09/02/00 Recorded varicella virus vaccine 09/02/00 Recorded Medications cloBAZam 0 Refill(s) Start Date: 11/16/22 Status: Ordered estradiol 0.0375 mg/24 hours twice weekly transdermal film, extended release See Instructions, change patch twice a week, # 24 patches, 3 Refill(s), Pharmacy: [id number], 62.4, kg, 01/17/24 14:41:00 EDT, Weight [...] Related Diagnosis Body Site Status Pap Due 08/2024 1, 2 08/16/21 Comp leted Colposcopy 3 09/15/20 Completed delivery 4 04/15/10 Compl eted Embryo transfer 08/09/09 Completed Breast biopsy sample 09/01/01 Comp leted Neg/Neg 06/19/19 ASCUS/Neg 07/01/20 ASCUS/Neg 09/16/20 ASCUS/ - HR HPV Colpo benign 08/17/21 ASCUS/Neg 2Due 08/2024 3Benign 4[place] Social History Social History Type Response Tobacco Never tobacco user T obacco Use:. Sex Female Patient Care team information Care Team Personnel Name: Jhony Hamilton MD Position: No Access Member Role: Primary Care Physician Address: Address: [address] Care Team Related Persons Name: SILVIA BURTON Address: Home [address] [place] [phone] Address: Mailing [address] [place] [address] [phone] Name: EUNICE KABA
--- OUTSIDE RECORDS SUMMARY | 2024-07-13 18:22 | XMS_ITS | Encounter Summary ---
Author Organization Replaced By [facility] [place] [place] [address] Care Team Providers Care Corrections Counselor Name Role Phone Sandy Hernadez CRIMINAL RESEARCHER Primary Care Provider + Reason for Visit * Auth/Cert Specialty Diagnoses / Procedures Referred By Braulio alcantar Referred To Contact Diagnoses HNP Procedures PRO ARTHRODESIS, ANT INTERBODY,DECOMPRESSION; CERVICAL BELOW C2 PRO INSERT BIOMCHN DEV INTERVERTEBRAL DSC SPC W/ARTHRD PRO ALLOGRAFT FOR SPINE SURGERY ONLY MORSELIZED ARTHRODESIS, ANT INTERBODY,DECOMPRESSION; CERVICAL BELOW C2 (WRVU 25) INSERTION INTERBODY BIOMECH DEV TO INTERVEBRAL DISC SPACE, EA INTERSPACE (WRVU 4.25) ALLOGRAFT FOR SPINE SURGERY ONLY; MORSELIZED (WRVU *) Referral ID Status Reason Start Date Expiration Date Visits Re quested Visits Authorized [id number] 1 1 Encounter Details Date Type Department Care Team (Late st Contact Info) Description 11/01/2020 10:03 AM EST - 11/01/2020 12:36 PM EST Surgery Operating Room [address] [address] [address] [place] [address] Joey Hoyos MD [address] [place] [address] ARTHRODESIS, ANT INTERBODY,DECOMPRESSIO N; CERVICAL BELOW C2 (WRVU 25) Social History Tobacco Use Types Packs/Day Years Used Date Smoking Tobacco: Never Smokeless Tobacco: Never Alcohol Use Standard Drinks/Week Comments Yes 7 (1 standard drink = 0.6 oz pur e alcohol) Sex and Gender Information Value Date Recorded Sex Assigned at Not on file Gender Identity Not on file Sexual Orientation Not on file documented as of this encounter Last Filed Vital Signs Vital Sign Reading Time Taken Comments Blood Pressure 108/67 11/01/2020 12:31 PM EST Pulse 66 11/01/2020 12:31 PM EST Temperature 36.6 ??C (97.9 ??F) 11/01/2020 11:[address] Respiratory Rate 15 11/01/2020 12:31 PM EST Oxygen Saturation 96% 11/01/2020 12:31 PM EST Inhaled Oxygen Concentration - - Weight 60.8 kg (134 lb) 11/01/2020 8:37 AM EST Height 170.2 cm (5' 7) 11/01/2020 8:37 AM EST Body Mass Index 20.99 11/01/2020 8:37 AM EST documented in this encounter Discharge Instructions * Patient Instructions* Vladislav Conti PA - 11/01/2020 9:18 AM EST Full recovery will depend on your having a strong, positive attitude, setting small goals for improvement and working steadily to accomplish each goal. FOLLOW UP APPOINTMENTS: You will be scheduled for a follow-up appointment four to six weeks after surgery with a Physician???s Electronic Prepress System Operator at the surgeon???s office. You will have a follow up appointment with the neurosurgeonin three months. If you have sutures that need to be removed, a suture removal appointment will be made for 10-14 days after surgery. If you had hardware, you may need x-rays done at [facility] prior to your follow up appointments. This will be arranged ahead of time by the office. MEDICATIONS: ??? Avoid your Excedrin Migraine for a week if possible to reduce bleeding risk. ??? Take your medicine at the time your doctor ordered. ??? Keep a list of your medicines, vitamins, and herbal supplements you take. Keep this list with you at all times. Show it to your caregiver at every visit. Keep the list up-to-date. ??? Ask your caregiver or pharmacist to write an explanation of each medicine you are taking. This should include: why you are taking it, possible side effects, best time of day to take it, what foods to take the medication with or foods to avoid, and when to stop taking it. ??? Only take [id number] or prescription medicine for pain, discomfort or fever as directed by your caregiver. ??? Consult your doctor or pharmacist with any questions. NEW MEDICATIONS AT DISCHARGE: []None []Given prescriptions in office preoperatively OR: Medication Dose/Route/ Frequency Prescription given? Reason for medication Medscape monograph discussed []Yes []No []Yes []No []Yes []No []Yes []No PAIN: ??? It is normal to have pain after your surgery; especially in the neck and upper back. ??? This does not mean that the procedure was unsuccessful or that your recovery will be delayed. ??? Arm and/or leg aching is also not uncommon. o This is primarily caused by inflammation of the previously compressed nerve. o The discomfort will gradually decrease as the nerve continues to heal. ??? You may also experience muscle spasms across your back and into your extremities. ??? Medications will be given to control pain and decrease spasm intensity. ??? Moist heat and/or ice and frequent repositioning may also be helpful. DIET: ??? You may adjust your diet back to normal as your appetite returns. ??? Be sure to drink plenty of fluids, particularly water, and eat whole grain cereals, fruits and fruit juices to combat constipation that is sometimes caused by pain medications. ??? If constipation does occur, an over the counter laxative is acceptable. ??? Call your surgeon if you experience persistent nausea and vomiting. ACTIVITY: ??? Increase your activity slowly. Daily walking is the best exercise. Try to increase your distance a little each day. Go at a pace that doesn???t make you too tired or cause too much pain. ??? It is normal to tire easily for the first week or so after you return home. ??? DO NOT lift anything over five pounds. Keep in mind a gallon of milk weighs eight pounds. Do not lift anything that you cannot easily lift with one hand. ??? Sexual relations may be resumed during the recovery period, but positions that strain the neck or cause pain should be avoided. ??? Consult your surgeon in regards to your driving status. There are no set time restrictions. Usecommon sense and do not attempt to resume driving until you feel completely comfortable to drive inand uninhibited manner. ACTIVITY (continued): ??? It is recommended that you do not drive for the first 1-2 weeks or while taking narcotic pain relievers. Please call the office with questions. ??? You may resume other physical activities including work only after consulting with your treating physician. POST ANESTHESIA/SEDATION: ??? You have received medication for sedation and comfort during your procedure. Because these havenot completely left your system, please observe the following precautions: o Plan to relax for the next several hours o DO NOT drive or operate machinery until the day after your procedure, longer as recommended by your surgeon o Avoid alcohol for the next 24 hours o Do not make any important personal or business decisions today BANDAGE/SHOWERING: You may have Dermabond over the incision (typically a purple glue like substance), with inner sutures that do not need to be removed. The Dermabond will gradually fall off. You may have sutures that require removal. If these are used you will be scheduled for a suture removal appointment within 10 to 14 days of the procedure. ??? You may shower after three to five days. ??? Do NOT scrub the incision. ??? Pat the area dry with a towel after showering. ??? Avoid soaking (baths, hot tubs, swimming, etc) until approximately two weeks after your surgery, when your wound is all the way healed. SEEK IMMEDIATE MEDICAL CARE/CALL YOUR SURGEON IF: ??? There is redness, swelling or increasing pain at the wound. ??? You notice purulent (colored, puss-like) drainage coming from the wound. ??? You notice a foul smell coming from the wound or bandage. ??? You experience urinary problems. ??? You experience any NEW weakness or numbness in your arms or legs. SEEK IMMEDIATE MEDICAL CARE/CALL YOUR SURGEON IF (continued): ??? You develop an oral temperature about 101 degrees F. ??? There is a breaking open of the wound. The edges do not stay together after the sutures or tapehas been removed. ??? There is persistent bleeding from an incision. ??? You have increasing swelling in the neck. ??? You develop difficulty breathing - Call 911. If you have questions, please call [facility] at [phone], during business hours of Saturday through Saturday from 8:00 a.m. until 4:00 p.m. In case of emergency during non-business hours, please call the same main number and follow the prompts to page the neurosurgeon obiee obia solution architect. SMOKING CESSATION INFORMATION: ??? [place] QUITLINE: ??? [place] QUITLINE: ??? [email or web address] If you smoke, stop now! Smoking may impede healing. MAKE SURE YOU: ??? Understand these instructions. ??? Will seek medical care if you are feeling poor, or get worse. ??? Will call the surgeon???s office with any questions or concerns at : [phone] * Attachments The following attachments cannot be sent through Care Everywhere. * Cervical Spinal Fusion: Post-op (Beninese) documented in this encounter Medications at Time of Discharge Medication Sig Dispensed Refills Start Date End Date SUMAtriptan (Imitrex) 100 mg Tablet Take 100 mg by mouth 2 times daily as needed. levonorgestreL (levonorgestrel) 20 mcg/24 hours (6 yrs) 52 mg IUD Mirena 20 mcg/24 hours (6 yrs) 52 mg intrauterine device Take by intrauterine route. prochlorperazine (Compazine) 10 mg Tablet Take 1 tablet by mouth every 8 hours as needed. cyclobenzaprine (Flexeril) 10 mg Tablet Take 10 mg by mouth 3 times daily as needed for Muscle spasms. VALERIAN ORALIndications:for sleep Take 2 capsules by mouth nightly as needed. Indications: for sleep aspirin/acetaminophen/c affeine (EXCEDRIN MIGRAINE ORAL) Take 1-2 tablets by mouth every 6 hours as needed (migraine). clonazePAM (KlonoPIN) 0.5 mg Tablet TAKE ONE TABLET BY MOUTH EVERY DAY NEEDED 09/27/2020 traMADoL (Ultram) 50 mg Tablet Take 50 mg by mouth 2 times daily as needed. 07/19/2020 zolpidem (Ambien) 5 mg Tablet Take 5 mg by mouth nightly as needed. 07/09/2020 documented as of this encounter Progress Notes * Kevin Brown RN - 11/01/2020 4:47 PM EST Anabell Talley discharged per provider order to home via . All IV???s removed. Discharge instructions reviewed with patient and . All questions or concerns answered at this time. Patient encouraged to call with any further questions or concerns. Copy of After Visit Summary given to patient at time of discharge. All personal belongings returned to patient, including prescription medications. Patient assisted to personal vehicle via staff member and wheelchair. Kevin Brown RN, 11/01/2020 * Velia Fry RN - 11/01/2020 1:30 PM ESTSummary: PACU s/p ACDF Uneventful PACU recovery. Assessment, vital signs, intake/output normal, refer to Flowsheet for complete details. Report given to med/surgery center administrator. Pt transported to their overnight room via hospital bed. documented in this encounter H&P Notes * Vladislav Conti PA - 11/01/2020 9:17 AM EST Patient Name: Anabell Talley Patient Age: 40 y.o. Birthdate: 1980 Admit date: 11/01/2020 Attending Physician: Joey Hoyos MD The patient's history and physical exam have been reviewed and completed. There has been no interval change from that of the pre-operative history and physical exam done within the last 30 days. documented in this encounter Miscellaneous Notes * Plan of Care - Kevin Brown RN - 11/01/2020 4:15 PM EST Problem: Adult Inpatient Plan of Care Goal: Plan of Care Review Outcome: Ongoing (Interventions Implemented as Appropriate) Flowsheets (Taken 11/01/2020 1614) Plan of Care Reviewed With: patient Progress: improving Goal: Patient-Specific Goal (Individualized) Outcome: Ongoing (Interventions Implemented as Appropriate) Flowsheets (Taken 11/01/2020 1614) Anxieties, Fears or Concerns: NONE Individualized Care Needs: NONE Patient-Specific Goals (Include Timeframe): NONE Goal: Absence of Hospital-Acquired Illness or Injury Outcome: Ongoing (Interventions Implemented as Appropriate) Goal: Optimal Comfort and Wellbeing Outcome: Ongoing (Interventions Implemented as Appropriate) Goal: Readiness for Transition of Care Outcome: Ongoing (Interventions Implemented as Appropriate) * Op Note - Joey Hoyos MD - 11/01/2020 10:20 AM EST [facility] Operative Note [facility] [address] [place] [address] Patient Name: Anabell Talley : [id number] MR#: [id number] Case Date: 11/01/2020 Case Scheduled Time: 1003 Surgeon: Surgeon(s) and Role: * Joey Hoyos MD - Primary * Vladislav Conti PA - Physician Electronic Prepress System Operator Preoperative diagnosis: HNP Postoperative diagnosis: HNP Procedure(s) (LRB): ARTHRODESIS, ANT INTERBODY,DECOMPRESSION; CERVICAL BELOW C2 (WRVU 25) (Bilateral) INSERTION INTERBODY BIOMECH DEV TO INTERVEBRAL DISC SPACE, EA INTERSPACE (WRVU 4.25) (Bilateral) ALLOGRAFT FOR SPINE SURGERY ONLY; MORSELIZED (WRVU *) (Bilateral) MODIFIER [address] (Bilateral) Actual procedure: C6/7 anterior discectomy and instrumented fusion using screw fixated biomechanical device and demineralized bone matrix. Use of the high powered operative microscope. Intraoperativefluoroscopy. Anesthesia: General Estimated Blood Loss: * No values recorded between 11/01/2020 10:20 AM and 11/01/2020 11:21 AM * Specimens removed during surgery: None Drains: * No LDAs found * Surgical Closure: Primary Closure - skin incision is completely closed without any wires, alexandrea, drains or other devices Disposition: awakened from anesthesia, extubated and taken to the recovery room in a stable condition, having suffered no apparent untoward event. Condition: doing well without problems Complications: none (Please see the Surgical Encounter Summary for any Implant and Specimen details pertinent to this patient.) Findings: large hnp. Excellent placement of interbody device and screws. No complications or problems. No csf. No unusual bleeding. No motor discharges. Sponge and needle counts correct. Correct level confirmed at multiple points throughout the surgery with intraoperative fluoroscopy and of course the intraoperative findings. Surgical Indications: Anabell Talley is a 40 y.o. year old female who is suffering from a disc herniation at C6/7. Please refer to my office notes for details of presentation, findings on exam, and medical decision making. she has requested that we consider surgical treatment of this condition. Pros and cons, rationale and risks, options and alternatives have been thoroughly reviewed. The patient acknowledges the extensive list of risk of this surgery as explained in no uncertain terms. The patient acknowledges that I cannot provide a guarantee regarding the success of the procedure, the avoidance of complication, or the durability of the result. There has been ample opportunity for the patient to ask and have answered any and all questions, seek any additional information needed to make aninformed decision, or seek additional professional opinion if desired. Understanding all of this, she requests that we proceed with operation. Procedure Description: Anabell Talley was brought into the operating room. she was able to position herself on the operative table with the head in the savannah gel horseshoe headrest. she was comfortable here and had no new symptoms. General endotracheal anesthetic was induced by the spooler. I did not manipulate the head or neck. The neck was then prepped and draped in usual sterile fashion. We paused to confirm the patient's name and identifying information, site and type of surgery to be performed, presence of films if needed, availability of all anticipated necessary equipment and implants, administration of antibiotics and discussion of all other data relevant and required by the preoperative check-list. Once this had all been confirmed, we made our incision horizontally in the neck with a number 10 blade in a location that avoided her midline cleft surgical scar. Dissection of the subcutaneous tissues was carried out with the electrocautery. The platysma was opened with the same. It was deficient medially. There was no difficulty due to the midline cleft encountered with our dissection. We then utilized a blunt dissection technique, keeping the trachea anteromedial and the carotid sheath and its contents posterolateral. This allowed us to arrive at the prevertebral fascia. This layer was clarified with a Kitner. We then confirmed our level fluoroscopically, using a bent spinal needle as a marker. The longus coli muscles were elevated with the monopolar electrocautery. We then deployed the Sau[place]a table based retractor system. We used the small, tapered blades, the tips of which were located beneath the longus coli. We then implanted [place] distracting pins and confirmed their location fluoroscopically.The anterior annulus was then incised with the15 blade. Disc material was removed with straight and upbiting curettes, pituitary instruments and the 2 and 3mm Kerrisons. The high speed drill was utilized with the coarse daniela barrel corpectomy bit in orderto create a smooth, symmetric channel through the disc space and also to abrade the endplates, preparing them for acceptance of the interbody substrate at the end of the case. Once the posterior annulus was visualized, the high powered operative microscope was brought in. The posterior annulus and posterior longitudinal ligament were opened centrally allowing removal of the disc herniation. We then opened the PLL widely using the 1 and 2 mm Kerrisons. Standard foraminotomy was carried out bilaterally to an extent sufficient to satisfactorily decompress the nerve roots. The degree of decompression was determined by interrogating the visible interfaces between bone and the thecal sac and nerve roots using the micro-hook. Once satisfactory decompression had been achieved, the distraction wasrelaxed and hemostasis was achieved. At this point, the dura was bulging up into the decompressed disc space, soft and pulsatile. There was no bleeding.Once the disc space was prepared, it was sized for an appropriate [place] biomechanical screw fixated interbody device. A 7mm device was chosen and soaked in antibiotic solution. It was then packed with demineralized bone matrix and inserted under gentle distraction. The distraction was released. The security of the device was confirmed through direct interogation. The [place] pins were removed. The pin holes were filled with Floseal. The device was affixed with 3 14mm screws. These were torqued per the video editor's specifications.The retractors were removed. The soft tissues were inspected to ensure meticulous hemostasis. The carotid f elt normal. The wound was flushed with antibiotic irrigant. The effluent was crystal clear. The platysma was closed with inverted 3-0 Vicryl sutures. The subcuticular layer was closed with a running 5-0 PDS. The skin edges were approximated with Dermabond, Benzoin and paper tape. The patient was then allowed to awaken from anesthetic and transferred to the post-anesthesia care unit in stable condition. Infection Bundle used? N/A Vladislav Conti PA-C worked under my direction for the duration of the operative session. The licensed loan officer assistant adequately prepped the operative site and maintained the best possible exposure of anatomy incident to the procedure. Joey Hoyos MD 11/01/2020 documented in this encounter Plan of Treatment Not on file documented as of this encounter Procedures Procedure Name Priority Date/Time Associated Diagnosis Comments XR FLUORO NO RAD <1HR - OR USE Routine 11/01/2020 11:13 AM EST MODIFIER LISSET SPINE - [place] 11/01/2020 9:55 AM EST HNP Allograft For Spine Surgery Only Morselized (76805) 11/01/2020 9:55 AM EST HNP Insert Biomchn Dev Intervertebral Dsc Spc W/Arthrd (71343) 11/01/2020 9:55 AM EST HNP Arthrodesis, Ant Interbody,Decompression ; Cervical Below C2 (50799) 11/01/2020 9:55 AM EST HNP IMPLANTABLE DEVICES SCAN 11/01/2020 12:00 AM EST POCT URINE Routine 11/01/2020 documented in this encounter Results * XR Fluoro No Rad <1Hr - OR Use (11/01/2020 11:13 AM EST) Narrative RAD - 11/01/2020 11:57 AM EST This exam is auto-finalizing. No interpretation was done. Joey Hoyos MD IMG FLUORO ORDERABLE [place], [place] * SCAN DOC: IMPLANTABLE DEVICES (11/01/2020 12:00 AM EST) Unknown MEDIA MGR SCAN EXT O RDR/RSLT * POCT urine (11/01/2020) POC Urine HCG Negative Negative - Negative POC Control Internal Controls Acceptable 11/01/2020 Rosendo Oakley Tristian NICHOL POINT OF CARE TEST ORDERABLES documented in this encounter Visit Diagnoses Not on filedocumented in this encounter Admitting Diagnoses Diagnosis Status post cervical spinal fusion Arthrodesis status documented in this encounter Administered Medications Inactive Administered Medications - up to 3 most recent administrations Medication Order MAR Action Action Date Dose Rate Site cyclobenzaprine (Flexeril) tablet 10 mg 10 mg, Oral, 3 TIMES DAILY PRN, Starting on Sat11/01/20 at 1328, Until Sat11/01/20 at 1848, Muscle spasms, Routine Given 11/01/2020 4:22 PM EST 10 mg diazePAM (Valium) tablet 5 mg 5 mg, Oral, ONCE PRN, 1 dose, Starting on Sat11/01/20 at 1136, Until Sat11/01/20 at 1234, spasm, PACU Recovery, Routine Given 11/01/2020 12:34 PM EST 5 mg famotidine (Pepcid) (10 mg/mL) injection 20 mg 20 mg, Intravenous, ONCE, 1 dose, On Sat11/01/20 at 0845, Day of Surgery (Day of Procedure), Routine Given 11/01/2020 8:45 AM EST 20 mg fentaNYL (pf) (50 mcg/mL) multi-dose injection 12.5-25 mcg 12.5-25 mcg, Intravenous, EVERY 5 MIN PRN, Starting on Sat11/01/20 at 1136, Until Sat11/01/20 at 1329, Pain, Give 12.5 mcg every 5 minutes PRN for mild to moderate pain (1-5) Give 25 mcg every 5 minutes PRN for moderate to severe pain (6-10). Hold for respiratory rate less than 10 per minute. Maximum dose 250 mcg over one hour. If ordered with hydromorphone or morphine, give hydromorphone or morphine first and use fentanyl for breakthrough pain., PACU Recovery, Routine Given 11/01/2020 12:46 PM EST 12.5 mcg Given 11/01/2020 12:31 PM EST 12.5 mcg Given 11/01/2020 12:22 PM EST 12.5 mcg lidocaine-EPINEPHrine (1% - 1:100,000) injection ONCE PRN, Starting on Sat11/01/20 at 1021, Until Sat11/01/20 at 1327, Intra-Operative (Intra-Procedure), Routine Given 11/01/2020 10:21 AM EST 7 mLs ondansetron (pf) (Zofran) (2 mg/mL) injection 4-8 mg 4-8 mg, Intravenous, EVERY 8 HOURS PRN, Starting on Sat11/01/20 at 1329, Until Sat11/01/20 at 1848, Nausea, Vomiting, 4 mg, Oral, EVERY 8 HOURS PRN, Nausea, Vomiting If multiple antiemetics are ordered, use ondansetron first. Start with 4mg and if ineffective in 30 minutes, give an additional 4mg., Routine ondansetron (Zofran) tablet 4-8 mg 4-8 mg, Oral, EVERY 8 HOURS PRN, Starting on Sat11/01/20 at 1329, Until Sat11/01/20 at 1848, Nausea, Vomiting, If multiple antiemetics are ordered, use ondansetron first. PO Preferred. If patient unable to take PO, may give IV if ordered. Start with 4mg and if ineffective in 45 minutes, give an additional 4mg. If unable to take PO, may give IV., Routine prochlorperazine (Compazine) (5 mg/mL) injection 10 mg 10 mg, Intravenous, EVERY 6 HOURS PRN, Starting on Sat11/01/20 at 1329, Until Sat11/01/20 at 1848, Nausea, Nausea/Vomiting, If multiple antiemetics are ordered, use ondansetron first. If ondansetron ineffective use prochlorperazine. Only give IV if unable to take PO, Routine prochlorperazine (Compazine) tablet 10 mg 10 mg, Oral, EVERY 6 HOURS PRN, Starting on Sat11/01/20 at 1329, Until Tu11/01/20 at 1848, Nausea, Nausea/Vomiting, If multiple antiemetics are ordered, use ondansetron first. If ondansetron ineffective use prochlorperazine. PO Preferred. If patient unable to take PO, may give IV if ordered., Routine scopolamine (TRANSDERM-SCOP) 1 mg over 3 days patch 1 patch 1 patch, Transdermal, ONCE, 1 dose, On Sat11/01/20 at 0845, Day of Surgery (Day of Procedure), Routine Patch Applied 11/01/2020 8:45 AM EST 1 patch 01- Ear Behind (Left) scopolamine (TRANSDERM-SCOP) 1 mg patch Patch Verification Transdermal, 2 TIMES DAILY, First dose on Sat11/01/20 at 0900, Until Discontinued, Verify scopolamine 1 mg patch., Recovery (Recovery-Hospital Unit) sodium chloride 0.9 % (flush) flush 3 mL 3 mL, Intravenous, EVERY 12 HOURS SCHEDULED (2 times per day), First dose on Sat11/01/20 at 1415, Until Discontinued, Routine Given 11/01/2020 1:44 PM EST 3 mLs traMADoL (Ultram) tablet 50 mg 50 mg, Oral, EVERY 6 HOURS PRN, Starting on Sat11/01/20 at 1329, Until Sat11/01/20 at 1848, Pain, Routine Given 11/01/2020 4:22 PM EST 50 mg documented in this encounter Active and Recently Administered Medications Times are shown in EST. Scheduled Medication Order 10/30/2020 10/31/2020 11/01/2020 ceFAZolin (Ancef) 2 g in dextrose 5% 100 mL infusion (COMPLETED) 2 g, Intravenous, ONCE, 1 dose, On Sat11/01/20 at 0845, Administer over 30 Minutes, To be administered upon arrival to the OR within one hour prior to incision., Day of Surgery (Day of Procedure), Indication for (Active or Suspected): Prophylaxis 1010 (Given - Provid er: Rosendo Lubin CRNA) famotidine (Pepcid) (10 mg/mL) injection 20 mg (COMPLETED) 20 mg, Intravenous, ONCE, 1 dose, On Sat11/01/20 at 0845, Day of Surgery (Day of Procedure), Routine 0845 (Given - Provid er: Sarah Romero RN) scopolamine (TRANSDERM-SCOP) 1 mg over 3 days patch 1 patch (COMPLETED) 1 patch, Transdermal, ONCE, 1 dose, On Sat11/01/20 at 0845, Day of Surgery (Day of Procedure), Routine 0845 (Patch Applied - Provider: Sarah Romero RN) scopolamine (TRANSDERM-SCOP) 1 mg patch Patch Removal Transdermal, EVERY 24 HOURS, 1 dose, First dose on Sat11/01/20 at 0845, Remove scopolamine 1 mg patch, Recovery (Recovery-Hospital Unit) 0845 (Due) scopolamine (TRANSDERM-SCOP) 1 mg patch Patch Verification Transdermal, 2 TIMES DAILY, First dose on Sat11/01/20 at 0900, Until Discontinued, Verify scopolamine 1 mg patch., Recovery (Recovery-Hospital Unit) 0900 (Due) sodium chloride 0.9 % (flush) flush 3 mL 3 mL, Intravenous, EVERY 12 HOURS SCHEDULED (2 times per day), First dose on Sat11/01/20 at 1415, Until Discontinued, Routine 1344 (Given - Provid er: Kevin Brown RN) Continuous Medication Order 10/30/2020 10/31/2020 11/01/2020 lactated ringers infusion (CANCELED) 1,000 mL, at 50 mL/hr, Intravenous, CONTINUOUS, Starting on Sat11/01/20 at 0845, Until Sat11/01/20 at 1328, Day of Surgery (Day of Procedure) 0956 (New Bag - Prov ider: Rosendo Lubin CRNA)1123 (Anesthesia Volume Adjustment - Provider: Rosendo Lubin CRNA) PRN Medication Order 10/30/2020 10/31/2020 11/01/2020 acetaminophen (Tylenol) tablet 650 mg 650 mg, Oral, EVERY 4 HOURS PRN, Starting on Sat11/01/20 at 1329, Until Sat11/01/20 at 1848, Pain, Fever, Administer for mild pain (1-3) or temperature greater than or equal to 38 degrees celsius. Maximum dose of acetaminophen is 4,000 mg from all sources in 24 hours. When ordered for pain, acetaminophen should be given even when other ordered pain medications are indicated., Routine clonazePAM (KlonoPIN) tablet 0.5 mg 0.5 mg, Oral, 2 TIMES DAILY PRN, Starting on Sat11/01/20 at 1328, Until Sat11/01/20 at 1848, Anxiety, DO NOT SPLIT, CRUSH OR OPEN, Routine cyclobenzaprine (Flexeril) tablet 10 mg 10 mg, Oral, 3 TIMES DAILY PRN, Starting on Sat11/01/20 at 1328, Until Sat11/01/20 at 1848, Muscle spasms, Routine 1622 (Given - Provid er: Kevin Brown RN) diazePAM (Valium) tablet 5 mg (COMPLETED) 5 mg, Oral, ONCE PRN, 1 dose, Starting on Sat11/01/20 at 1136, Until Sat11/01/20 at 1234, spasm, PACU Recovery, Routine 1234 (Given - Provid er: Velia Fry RN) fentaNYL (pf) (50 mcg/mL) multi-dose injection 12.5-25 mcg (CANCELED) 12.5-25 mcg, Intravenous, EVERY 5 MIN PRN, Starting on Sat11/01/20 at 1136, Until Sat11/01/20 at 1329, Pain, Give 12.5 mcg every 5 minutes PRN for mild to moderate pain (1-5) Give 25 mcg every 5 minutes PRN for moderate to severe pain (6-10). Hold for respiratory rate less than 10 per minute. Maximum dose 250 mcg over one hour. If ordered with hydromorphone or morphine, give hydromorphone or morphine first and use fentanyl for breakthrough pain., PACU Recovery, Routine 1201 (Given - Provid er: Velia Fry RN)1208 (Given - Provider: Velia Fry RN)1214 (Given - Provider: Velia Fry RN)1222 (Given - Provider: Velia Fry RN)1231 (Given - Provider: Velia Fry RN)1246 (Given - Provider: Velia Fry RN) lidocaine-EPINEPHrine (1% - 1:100,000) injection (CANCELED) ONCE PRN, Starting on Sat11/01/20 at 1021, Until Sat11/01/20 at 1327, Intra-Operative (Intra-Procedure), Routine 1021 (Given - Provid er: Joey Hoyos MD) magnesium hydroxide (Milk of Magnesia) (240 mg/mL) oral liquid 10 mL 10 mL, Oral, ONCE PRN, 1 dose, Starting on 11/01/20 at 1329, Until 11/01/20 at 1848, Constipation, Administer if needed per patient's routine or if no bowel movement within 72 hours If multiple PRN bowel medications ordered, start with magnesium hydroxide, then bisacodyl., Routine ondansetron (pf) (Zofran) (2 mg/mL) injection 4-8 mg(Linked Group 1) 4-8 mg, Intravenous, EVERY 8 HOURS PRN, Starting on 11/01/20 at 1329, Until Tu11/01/20 at 1848, Nausea, Vomiting, 4 mg, Oral, EVERY 8 HOURS PRN, Nausea, Vomiting If multiple antiemetics are ordered, use ondansetron first. Start with 4mg and if ineffective in 30 minutes, give an additional 4mg., Routine ondansetron (Zofran) tablet 4-8 mg(Linked Group 1) 4-8 mg, Oral, EVERY 8 HOURS PRN, Starting on 11/01/20 at 1329, Until 11/01/20 at 1848, Nausea, Vomiting, If multiple antiemetics are ordered, use ondansetron first. PO Preferred. If patient unable to take PO, may give IV if ordered. Start with 4mg and if ineffective in 45 minutes, give an additional 4mg. If unable to take PO, may give IV., Routine prochlorperazine (Compazine) (5 mg/mL) injection 10 mg(Linked Group 2) 10 mg, Intravenous, EVERY 6 HOURS PRN, Starting on 11/01/20 at 1329, Until 11/01/20 at 1848, Nausea, Nausea/Vomiting, If multiple antiemetics are ordered, use ondansetron first. If ondansetron ineffective use prochlorperazine. Only give IV if unable to take PO, Routine prochlorperazine (Compazine) tablet 10 mg(Linked Group 2) 10 mg, Oral, EVERY 6 HOURS PRN, Starting on 11/01/20 at 1329, Until 3/2/21 at 1848, Nausea, Nausea/Vomiting, If multiple antiemetics are ordered, use ondansetron first. If ondansetron ineffective use prochlorperazine. PO Preferred. If patient unable to take PO, may give IV if ordered., Routine sodium chloride 0.9 % (flush) flush 5-20 mL 5-20 mL, Intravenous, EVERY 1 MIN PRN, Starting on Sat11/01/20 at 1329, Until Sat11/01/20 at 1848, flush, Flush pertains to all indwelling lines. Flush per protocol found in the job aid using the link provided on this medication record., Routine SUMAtriptan (Imitrex) tablet 100 mg 100 mg, Oral, 2 TIMES DAILY PRN, Starting on Sat11/01/20 at 1328, Until Sat11/01/20 at 1848, Migraine, Routine traMADoL (Ultram) tablet 50 mg 50 mg, Oral, EVERY 6 HOURS PRN, Starting on Sat11/01/20 at 1329, Until Sat11/01/20 at 1848, Pain, Routine 1622 (Given - Provid er: Kevin Brown RN) zolpidem (Ambien) tablet 5 mg 5 mg, Oral, NIGHTLY PRN, Starting on Sat11/01/20 at 1328, Until Sat11/01/20 at 1848, Sleep, Routine Linked Groups Order Group 1: ondansetron (Zofran) tablet 4-8 mgJump to med 4-8 mg, Oral, EVERY 8 HOURS PRN, Starting on Sat11/01/20 at 1329, Until Sat11/01/20 at 1848, Nausea, Vomiting, If multiple antiemetics are ordered, use ondansetron first. PO Preferred. If patient unable to take PO, may give IV if ordered. Start with 4mg and if ineffective in 45 minutes, give an additional 4mg. If unable to take PO, may give IV., Routine Or ondansetron (pf) (Zofran) (2 mg/mL) injection 4-8 mgJump to med 4-8 mg, Intravenous, EVERY 8 HOURS PRN, Starting on Sat11/01/20 at 1329, Until Sat11/01/20 at 1848, Nausea, Vomiting, 4 mg, Oral, EVERY 8 HOURS PRN, Nausea, Vomiting If multiple antiemetics are ordered, use ondansetron first. Start with 4mg and if ineffective in 30 minutes, give an additional 4mg., Routine Group 2: prochlorperazine (Compazine) tablet 10 mgJump to med 10 mg, Oral, EVERY 6 HOURS PRN, Starting on Sat11/01/20 at 1329, Until Sat11/01/20 at 1848, Nausea, Nausea/Vomiting, If multiple antiemetics are ordered, use ondansetron first. If ondansetron ineffective use prochlorperazine. PO Preferred. If patient unable to take PO, may give IV if ordered., Routine Or prochlorperazine (Compazine) (5 mg/mL) injection 10 mgJump to med 10 mg, Intravenous, EVERY 6 HOURS PRN, Starting on Sat11/01/20 at 1329, Until Sat11/01/20 at 1848, Nausea, Nausea/Vomiting, If multiple antiemetics are ordered, use ondansetron first. If ondansetron ineffective use prochlorperazine. Only give IV if unable to take PO, Routine documented in this encounter Care Teams Corrections Counselor Relationship Specialty Start Date End Date Sandy Hernadez APRN PCP - General Family Medicine 09/12/20 documented as of this encounter
--- OUTSIDE RECORDS SUMMARY | 2024-07-13 18:22 | XMS_ITS | Encounter Summary ---
Author Organization [facility] [place] [address] Care Team Providers Care Landcare Facilitator Name Role Phone Jhony Naidu MD Primary Care Provider [phone] Encounter Details Date Type Department Care Team (Late st Contact Info) Description 09/07/2020 Ancillary Procedure Radiology at [facility] [address] [place] [id number] Joey Hoyos MD [address] [facility] [address] Social History Tobacco Use Types Packs/Day Years [...] Associated Diagnosis Comments FILM LIBRARY STORAGE ONLY MR SPINE Routine 09/07/2020 12:00 AM EST documented in this encounter Results * Film Library- Storage Only MR Spine (09/07/2020 12:00 AM EST) Narrative RAD - 09/14/2020 10:01 AM EST This exam is auto-finalizing. It's purpose is for storage only. Joey Hoyos MD IMG FILM LIBRARY ORD ERABLES [place], [place] documented in this encounter Visit Diagnoses Not on filedocumented in this encounter Care Teams Landcare Facilitator Relationship Specialty Start Date End Date Jhony Naidu MD [address] [id number] PCP - General 07/25/10 09/11/20 documented as of this encounter
--- OUTSIDE RECORDS SUMMARY | 2024-07-13 18:22 | XMS_ITS | Encounter Summary ---
Author Organization [facility] Address [address] [place] [address] Care Team Providers Care Men'S Leather Dress Belt Maker Name Role Phone Jhony Naidu MD Primary Care Provider [phone] Encounter Details Date Type Department Care Team (Latest Contact Info) Description 09/23/2020 Lab Requisition [facility] Pathology & Laboratory Medicine - [facility] [address] [place] [address] Julien Myers MD [address] [place] [address] [address] [place] [address] Atypical squamous cells of undetermined significance on cytologic smear of cervix (ASC-US); Encounter for screening for human papillomavirus (HPV) Social History Tobacco Use Types Packs/Day Years [...] Date/Time Associated Diagnosis Comments PAP TEST Today 09/23/2020 16:32 EST HPV DNA DETECTION WITH GENOTYPING, PCR Today 09/23/2020 16:32 EST documented in this encounter Results * HUMAN PAPILLOMAVIRUS (HPV) DETECTION-HIGH RISK TYPES (09/23/2020 16:32 EST) HPV other High Risk types, PCR Negative Negative 10/10/2020 13:52 [facility] Comment:No E6 or E7 mRNA is detected from HPV types 16,18,31,33,35,39,45,51,52,56,58,59,66, and 68 by coil winder strap mediated amplification. Papanicolaou smear specimen (specimen) CERVIX UTERI STRUCTURE / Unknown 09/23/2020 16:32 EST 10/07/2020 8:48 EST us Julien Myers MD MICROBIOLOGY - GENERAL ORDERABLE S Final Result [facility] [address] [place] [address] * PAP TEST (09/23/2020 16:32 EST) Specimens A. Cervix and/or Endocervix , ThinPrep Imaging System with Manual Evaluation 10/10/2020 13:52 [facility] Specimen Adequacy Satisfactory for Evaluation - transformation zone component absent 10/10/2020 13:52 [facility] General Categorization Epithelial Cell Abnormality 10/10/2020 13:52 [facility] Descriptive Diagnosis Squamous Cell Abnormality - Atypical squamous cells, undetermined significance (ASC-US). 10/10/2020 13:52 [facility] Educational Comments [facility] recommends following ASCCP's 2012 Updated Consensus Guidelines for the Management of Abnormal Cervical Cancer Screening Tests and Cancer Precursors (JLGTD, 2013; 17(5):S1-S27). Consensus guidelines are available online at www.asccp.org. 10/10/2020 13:52 [facility] Attestation By the signature below, the attending physician certifies that they have personally conducted a gross and/or microscopic examination of the described specimens and rendered or confirmed the above diagnosis. 10/10/2020 13:52 [facility] at 1352 Clinical History Clinical History, Signs, Symptoms, Chief Complaint, Pertaining to This Order: See below Prior Gynecologic Pathology?: Yes 10/10/2020 13:52 [facility] HPV The result for the Human Papillomavirus (HPV) Detection-High Risk Types is Negative. No E6 or E7 mRNA is detected from HPV types 16,18,31,33,35,3 9,45,51,52,56,58 ,59,66, and 68 by coil winder strap mediated amplification.Te sting was performed on specimen [id number] and was resulted on 10/10/2020 1335 EST by KYRIE, LAB INSTRUMENT RESULTS IN 10/10/2020 13:[address] [facility] Performing Lab [facility] 10/10/2020 13:[address] [facility] Scanned Images 10/10/2020 13:[address] [facility] Papanicolaou smear specimen (specimen) CERVIX UTERI STRUCTURE / Unknown 09/23/2020 16:32 EST 09/26/2020 11:07 EST us Julien Myers MD PATHOLOGY ORDERABLES Final Resul t [facility] [address] [place] [address] documented in this encounter Visit Diagnoses Diagnosis Atypical squamous cells of undetermined significance on cytologic smear of cervix (ASC-US) Papanicolaou smear of cervix with atypical squamous cells of undetermined significance (ASC-US) Encounter for screening for human papillomavirus (HPV) Special screening examination for human papillomavirus (HPV) documented in this encounter Care Teams Men'S Leather Dress Belt Maker Relationship Specialty Start Date End Date Jhony Naidu MD [address] [place] [id number] PCP - General 10/19/09 documented as of this encounter
--- OUTSIDE RECORDS SUMMARY | 2024-07-13 18:22 | XMS_ITS | Encounter Summary ---
Author Organization [facility] Address [address] [place] [address] Care Team Providers Care Investments Manager Name Role Phone Jhony Naidu MD Primary Care Provider [phone] Encounter Details Date Type Department Care Team (Latest Contact Info) Description 01/17/2024 Lab Requisition [facility] Pathology & Laboratory Medicine - [facility] [address] [place] [address] Julien Myers MD [address] [place] [address] [address] [place] [address] Atypical squamous cells of undetermined significance on cytologic smear of cervix (ASC-US); Encounter for screening for human papillomavirus (HPV); Encounter for gynecological examination (general) (routine) without abnormal findings Social History Tobacco Use Types Packs/Day Years [...] Date/Time Associated Diagnosis Comments PAP TEST Today 01/17/2024 17:31 EDT Atypical squamous cells of undetermined significance on cytologic smear of cervix (ASC-US) Encounter for screening for human papillomavirus (HPV) Encounter for gynecological examination (general) (routine) without abnormal findings HPV DNA DETECTION WITH GENOTYPING, PCR Today 01/17/2024 17:31 EDT Atypical squamous cells of undetermined significance on cytologic smear of cervix (ASC-US) Encounter for screening for human papillomavirus (HPV) Encounter for gynecological examination (general) (routine) without abnormal findings documented in this encounter Results * HUMAN PAPILLOMAVIRUS (HPV) DETECTION-HIGH RISK TYPES (01/17/2024 17:31 EDT) HPV other High Risk types, PCR Negative Negative 01/28/2024 14:35 EDT [facility] Comment:No E6 or E7 mRNA is detected from HPV types 16,18,31,33,35,39,45,51,52,56,58,59,66, and 68 by public aid eligibility assistant mediated amplification. Pap Test CERVIX UTERI STRUCTURE / Unknown 01/17/2024 17:31 EDT 01/24/2024 15:12 EDT us Julien Myers MD MICROBIOLOGY - GENERAL ORDERABLE S Final Result [facility] [address] [place] [id number] * PAP TEST (01/17/2024 17:31 EDT) Specimens A. Cervix and/or Endocervix , ThinPrep Imaging System with Manual Evaluation 01/28/2024 14:35 [facility] Specimen Adequacy Satisfactory for Evaluation - transformation zone component present 01/28/2024 14:35 [facility] General Categorization Negative for intraepithelial lesion or malignancy 01/28/2024 14:35 [facility] Attestation . 01/28/2024 14:35 [facility] at 1435 Clinical History SEE BELOW 01/28/20 14:35 [facility] HPV The result for the Human Papillomavirus (HPV) Detection-High Risk Types is Negative. No E6 or E7 mRNA is detected from HPV types 16,18,31,33,35,39 ,45,51,52,56,58,5 9,66, and 68 by public aid eligibility assistant mediated amplification.Ellie ting was performed on specimen [id number] and was resulted on 01/28/2024 1435 EDT by KYRIE, LAB INSTRUMENT RESULTS IN 01/28/2024 14:35 EDT [facility] Performing Lab [facility] 01/28/2024 14:35 EDT [facility] Scanned Images 01/28/2024 14:35 EDT [facility] Pap Test CERVIX UTERI STRUCTURE / Unknown 01/17/2024 17:31 EDT 01/20/2024 14:03 EDT us Julien Myers MD PATHOLOGY ORDERABLES Final Resul t [facility] [address] [place] [address] documented in this encounter Visit Diagnoses Diagnosis Atypical squamous cells of undetermined significance on cytologic smear of cervix (ASC-US) Papanicolaou smear of cervix with atypical squamous cells of undetermined significance (ASC-US) Encounter for screening for human papillomavirus (HPV) Special screening examination for human papillomavirus (HPV) Encounter for gynecological examination (general) (routine) without abnormal findings documented in this encounter Care Teams Investments Manager Relationship Specialty Start Date End Date Jhony Naidu MD [address] [place] [address] PCP - General 10/19/09 documented as of this encounter
--- OUTSIDE RECORDS SUMMARY | 2024-07-13 18:22 | XMS_ITS | Encounter Summary ---
Author Organization [facility] [place] [address] Care Team Providers Care Production Grader Name Role Phone Sandy Hernadez APRN Primary Care Provider + Encounter Details Date Type Department Care Team ([facility] st Contact Info) Description 10/31/2020 External Results Pre-Admission Testing at [facility] Day [address] [place] [id number] Social History Tobacco Use Types Packs/Day Years [...] Date/Time Associated Diagnosis Comments LAB SCAN Routine 10/29/2020 documented in this encounter Results * Scan Doc: Lab (10/29/2020) Historical Provider MD BRADLEY MGR SCAN EX T ORDR/RSLT documented in this encounter Visit Diagnoses Not on filedocumented in this encounter Care Teams Production Grader Relationship Specialty Start Date End Date Sandy Hernadez APRN PCP - General Family Medicine 09/12/20 documented as of this encounter
--- OUTSIDE RECORDS SUMMARY | 2024-07-13 18:22 | XMS_ITS | Continuity of Care Document ---
Author Organization [facility] Address [address] [place] [address] Care Team Providers Care Medical Technologist Name Role Phone [place], Jhony Joshi Primary Care Physician Encounter [facility] Date(s): 10/05/23 - 10/05/[address] [address] Discharge Disposition: Home or Self Care Attending Physician: Ragini Weber Admitting Physician: Ragini Weber Referring Physician: Ragini Weber Allergies, Adverse Reactions, Alerts Substance Reaction Severity Status clindamycin Unknown Active clindamycin Skin rash Unknown Active Assessment and Plan Future Appointments Diagnostic Tests Pending * Testosterone, Total and Free [facility] 10/05/23 * DHEA Sulfate [facility] 10/05/23 * T3, Free [facility] 10/05/23 * Hemoglobin A1c 10/05/23 * Vitamin D, 25-OH Total [facility] 10/05/23 Immunizations Given and Recorded Vaccine Date Status Refusal Reason SARS-CoV-2 (COVID-19) mRNA-1273 vaccine 10/03/20 R ecorded SARS-CoV-2 (COVID-19) mRNA-1273 vaccine 09/05/20 R ecorded influenza virus vaccine, inactivated 08/10/10 Sal rded influenza virus vaccine, inactivated 06/02/09 Sal rded tetanus/diphth/pertuss (Tdap) adult/adol 08/10/10 Recorded Novel [id number], all formulation 06/02/09 Recorded tetanus-diphth toxoids (Td) adult/adol 09/02/97 Re corded rubella virus vaccine 09/02/00 Recorded varicella virus vaccine 09/02/00 Recorded Medications cloBAZam 0 Refill(s) Start Date: 11/16/22 Status: Ordered estradiol 0.025 mg/24 hours weekly transdermal film, extended release 1 patches, Topical, every week, Apply 1 patch every week by transdermal route., # 13 patches, 3 Refill(s), Pharmacy: [id number] Start Date: 01/30/23 Status: Ordered Mirena 52 mg intrauteral device [...] HPV Colpo benign 08/17/21 ASCUS/Neg 4Due 08/2024 Results Laboratory List Name Date Automated Diff 10/05/23 CBC w/ Diff 10/05/23 Comprehensive Metabolic Panel 10/05/23 Ferritin 10/05/23 Folate Level 10/05/23 Free T4 10/05/23 Iron Level 10/05/23 Lipid Panel 10/05/23 Urinalysis Microscopic 10/05/23 Urinalysis with Micro if Indicated and C ulture if Indicated 10/05/23 Vitamin B12 Level 10/05/23 Most recent to oldest [Reference Range]: 1 WBC [5.0-10.0 x10^3/mcL] 4.2 x10^3/mcL *LOW* (10/05/23 8:28 AM) RBC [4.1-5.3 x10^6/mcL] 3.8 x10^6/mcL *LOW* (10/05/23 8:28 AM) Neutro Auto [40.0-75.0 %] 53.4 % (10/05/23 8:28 AM) Lymph Auto [20.0-50.0 %] 31.5 % (10/05/23 8:28 AM) Quay Auto [2.0-15.0 %] 9.9 % (10/05/23 8 AM) Basophil Auto [0.0-1.0 %] 1.9 % *HI* (10/05/23 AM) BUN [7-18 mg/dL] 15 mg/dL (10/05/23 8 AM) Cholesterol Total [50-200 mg/dL] 180 mg/ dL (10/05/23 AM) UA Color Yellow (10/05/23 AM) UA WBC [0-3] 0-3 (10/05/23 AM) LDL [0-130 mg/dL] 95 mg/dL (10/05/23 AM) Glucose Level [74-106 mg/dL] 92 mg/dL (10/05/23 AM) Potassium Level [3.5-5.1 mmol/L] 4.1 mmo l/L (10/05/23 AM) MCV [80.0-96.0 fL] 97.6 fL *HI* (10/05/23 AM) UA Urobilinogen Normal (10/05/23 AM) HDL [40-60 mg/dL] 74 mg/dL *HI* (10/05/23 AM) T4 Free [0.76-1.46 ng/dL] 0.77 ng/dL (10/05/23 AM) UA Bili [Negative] Negative (10/05/23 AM) UA Ketones Negative (10/05/23 AM) AST [15-37 unit/L] 12 unit/L *LOW* (10/05/23 AM) ALT [14-59 unit/L] 20 unit/L (10/05/23 8 AM) MCHC [31.0-35.0 g/dL] 33.0 g/dL (10/05/23 AM) Sodium Level [136-145 mmol/L] 142 mmol/L (10/05/23 8 AM) UA RBC [0-2] 3-5 (10/05/23 AM) Folate Level [>=8.6 ng/mL] 13.0 ng/mL 1 (10/05/23 8:28 AM) UA Leuk Est Negative (10/05/23 8: AM) UA Nitrite Negative (10/05/23 8 AM) UA Glucose [Negative] Negative (10/05/23 AM) Hct [37.0-47.0 %] 37.3 % (10/05/23 8: AM) UA Bacteria Rare /HPF (10/05/23 AM) Triglycerides [0-150 mg/dL] 57 mg/dL (10/05/23 8 AM) Calcium Level [8.5-10.1 mg/dL] 8.7 mg/dL (10/05/23 8: AM) Albumin Level [3.4-5.0 g/dL] 3.8 g/dL (10/05/23 8 AM) Protein Total [6.4-8.2 g/dL] 7.2 g/dL (10/05/23 8: AM) UA Protein Negative (10/05/23 8 AM) MCH [26.0-32.0 pg] 32.2 pg *HI* (10/05/23 8: AM) Neutro Absolute 2.3 x10^3/mcL *NA* (10/05/23 8: AM) Bilirubin Total [0.2-1.0 mg/dL] 0.4 mg/d L (10/05/23 8: AM) Hgb [12.0-16.0 g/dL] 12.3 g/dL (10/05/23 8: AM) B12 Level [193-986 pg/mL] 265 pg/mL (10/05/23 8:28 AM) Alk Phos [46-146 unit/L] 27 unit/L *LOW* (10/05/23 8: AM) UA Blood Trace *ABN* (10/05/23 8 AM) UA Mucous None Seen /HPF (10/05/23 8 AM) UA Spec Grav 1.020 *NA* (10/05/23 8: AM) Ferritin Level [8-252 ng/mL] 151 ng/mL (10/05/23 8:28 AM) Platelets [130-450 x10^3/mcL] 253 x10^3/ mcL (10/05/23 8:28 AM) CO2 [21-32 mmol/L] 28 mmol/L (10/05/23 8:28 AM) UA Squam Epithelial [None Seen] Rare (10/05/23 8:28 AM) Iron [50-170 mcg/dL] 60 mcg/dL (10/05/23 8:28 AM) UA pH 6.0 *NA* (10/05/23 8:28 AM) eGFR Non-AA [>=60] 93 (10/05/23 8:28 AM) eGFR AA [>=60] 93 (10/05/23 8:28 AM) UA Appear Clear (10/05/23 8:28 AM) Chloride Level [98-107 mmol/L] 106 mmol/ L (10/05/23 8:28 AM) RDW-CV [11.5-14.5 %] 12.0 % (10/05/23 8:28 AM) Imm Gran Auto [0.0-0.9 %] 0.2 % (10/05/23 8:28 AM) UA Culture Ind?. Not Indicated (10/05/23 8:28 AM) Creatinine Level [0.55-1.02 mg/dL] 0.80 mg/dL (10/05/23 8:28 AM) Eos, Auto [1.0-6.0 %] 3.1 % (10/05/23 8:28 AM) 1Interpretive Data: Normal: >8.6 ng/mL Deficient: <3.0 ng/mL The results of this assay can be falsely elevated due to the consumption of Biotin. Please instructpatients to discontinue the use of vitamins or supplements that contain Biotin 12 hours before blood collection. Social History Social History Type Response Tobacco Never tobacco user T obacco Use:. Sex Female Patient Care team information Care Team Personnel Name: Jhony Hamilton MD Position: No Access Member Role: Primary Care Physician Address: Address: [address] [address] Care Team Related Persons Name: SILVIA BURTON Address: Home [address] [place] [phone] Address: Mailing [address] [place] [phone] Name: EUNICE KABA
--- OUTSIDE RECORDS SUMMARY | 2024-07-13 18:22 | XMS_ITS | Encounter Summary ---
Author Organization [facility] Address [address] [place] [address] Care Team Providers Care Pipe Stem Aligner Name Role Phone Jhony Naidu MD Primary Care Provider [phone] Bisi Andrew MD Primary Care Provider Encounter Details Date Type Department Care Team (Late st Contact Info) Description 01/04/2006 Results Only [facility] conversion [address] [place] [address] Lindsay Myers MD [address] [place] [address] [address] [place] [address] Social History Tobacco Use Types [...] Priority Date/Time Associated Diagnosis Comments CYTOPATHOLOGY Routine 01/04/2006 0:00 EDT documented in this encounter Results * CYTOPATHOLOGY (01/04/2006 0:00 EDT) Pathology Report: CYTOPATHOLOGY REPORT Reports generated via electronic interface contain original data; however they are lacking the format of the original report. Caution should be taken when reading/interpreti ng unformatted reports. Name: ? ANABELL BURTON ? Accession #: ? [id number] : ? 1980 (Age: 25) ??F ?Collect Date: ? 01/04/2006 Location: ? [facility] ? Receive Date: ? 01/07/2006 Provider: ?LINDSAY MYERS MD Copy to: ? Specimen/Source: ?ThinPrep Pap Test, Cervix/Endocervix, processed on Exclusively.in ThinPrep Imaging System, with manual evaluation Last Menstrual Period: ? 12/24/05 Other: ? HPVA - HPV testing requested if ASC-US on the current ThinPrep Pap test. ? SPECIMEN ADEQUACY ? Satisfactory for Evaluation - transformation zone component present GENERAL CATEGORIZATION ? Negative for Intraepithelial Lesion or Malignancy ? Document reviewed and electronically signed by: ? Heidi Otto, MARCELLE(ASCP) ? Report Date: ??01/08/2006 15:51 End of Report [facility] 01/04/2006 01/07/2006 us Lindsay Myers MD PATHOLOGY ORDERABLES Final Resul t [facility] [address] [place] [address] documented in this encounter Visit Diagnoses Not on filedocumented in this encounter Care Teams Pipe Stem Aligner Relationship Specialty Start Date End Date Jhony Naidu MD [address] [place] [address] PCP - General 10/19/09 Bisi Andrew MD [address] [place] [address] [place] [address] PCP - General 10/17/09 10/18/09 documented as of this encounter
--- OUTSIDE RECORDS SUMMARY | 2024-07-13 18:22 | XMS_ITS | Encounter Summary ---
Author Organization [facility] [place] [address] Care Team Providers Care Riveter Hand Name Role Phone Sandy Hernadez FREEDOM OF INFORMATION OFFICER Primary Care Provider + Reason for Visit [...] Expiration Date Visits Re quested Visits Authorized [id number] 1 1 Encounter Details Date Type Department Care Team (Late st Contact Info) Description 11/01/2020 9:56 AM EST Anesthesia Event Operating Room [address] [place] [address] Rosendo Lubin, COLLECTION SPECIALIST [address] [place] [address] Anesthesia Record Procedure Summary Procedure Name Responsible Anesthesiologist Anesthesia Start Time Anesthesia Stop Time ARTHRODESIS, ANT INTERBODY,DECOMPRES MICHELLE; CERVICAL BELOW C2 (WRVU 25) (Bilateral) Rosendo Lubin CRNA 11/01/20 0956 11/01/20 1144 Events Date Time Event Comment 11/01/2020 0946 0956 AN Verify 0956 Start 0956 An Start Data 1003 An Induction 1005 An Intubation 1006 Anesthesia Ready 1020 Procedure Start 1133 Extubation/LMA Out 1137 an stop data 1137 Recovery or ICU Handoff Kimmy ent care was transferred to the destination unit staff after review of the patient's medical history, current anesthetic/surgical status and plan, according to the Provider Handoff Checklist. 1144 Stop Meds Name Total Midazolam 2 mg fentaNYL 100 mcg IV Lidocaine 50 mg Propofol 250 mg Propofol INF 107.92 mg Rocuronium 40 mg Ondansetron 4 mg Dexamethasone 4 mg ceFAZolin (Ancef) 2 g in dextrose 5% 100 mL infusion 2 g Sugammadex 121.6 mg lactated ringers infusion 1,000 mL * Agents Name O2 Air N2O Sevoflurane (et) * Blood No blood administrations on file. Lines, Drains, and Airways Type Details Placement Removal (RETIRED) Peripheral IV Line - Single Lumen 11/01/20; 917; [id number] catheter system; 20 gauge; age-appropriate response, appears comfortable; 1; metacarpal vein (top of hand), left; 11/01/20; 1615 11/01/20 0918 by Sarah Romero RN 11/01/20 1615 by Kevin Brown RN ETT Mask Ventilation: Ea sy (1); ETT Type: Cuffed, Oral; ETT Size: 7 mm; Indirect: Video; Attempts: 1; Laryngoscopy Grade: 1; Secured at Teeth: 20 cm; Removal Date: 11/01/20; Removal Time: 1133 11/01/20 1005 by Rosendo Lubin CRNA 11/01/20 1133 by Rosendo Lubin CRNA (RETIRED) Incision 11/01/20; 1024; 04/03 05/24 (LDA cleanup utility RA#[id number]); 1715 (LDA cleanup utility RA#[id number]) 11/01/20 1024 by Tamie Sarabia RN 04/30/22 1715 by Beau Liz documented in this encounter Social History Tobacco Use Types Packs/Day Years Used Date Smoking Tobacco: Never Smokeless Tobacco: Never Alcohol Use Standard Drinks/Week Comments Yes 7 (1 standard drink = 0.6 oz pur e alcohol) Sex and Gender Information Value Date Recorded Sex Assigned at Not on file Gender Identity Not on file Sexual Orientation Not on file documented as of this encounter OR Notes * Anesthesia Postprocedure Evaluation - Rosendo Lubin CRNA - 11/01/2020 11:44 AM EST Department of Anesthesiology Post-procedure Note Patient: Anabell Talley Procedure Summary Date: 11/01/20 Room / Location: [facility] OR MAIN OR Anesthesia Start: 955 Anesthesia Stop: 1143 Procedures: ARTHRODESIS, ANT INTERBODY,DECOMPRESSION; CERVICAL BELOW C2 (WRVU 25) (Bilateral ) INSERTION INTERBODY BIOMECH DEV TO INTERVEBRAL DISC SPACE, EA INTERSPACE (WRVU 4.25) (Bilateral ) ALLOGRAFT FOR SPINE SURGERY ONLY; MORSELIZED (WRVU *) (Bilateral ) MODIFIER K2 MEDICAL - [place] (Bilateral ) Diagnosis: (HNP) Surgeons: Joey Hoyos MD Responsible Provider: Rosendo Lubin CRNA Anesthesia Type: general ASA Status: 2 All Anesthesia Providers: NICHOL Independent: Rosendo Lubin CRNA Vitals Value Taken Time BP Temp Pulse Resp SpO2 Pain Level Patient Location: PACU Level of Consciousness: Conscious but Sleepy Pain Management: Satisfactory Analgesia PONV: None Cardiovascular Status: At Baseline Respiratory Status: At Baseline Postoperative Fluid Status: Intravascular EUvolemia Possible Anesthetic Complications: NONE apparent at time of evaluation Final Primary Anesthesia Type: General (The anesthetic type performed was the same as planned.) Comments: Please see PACU flowsheet for VS. Report and care to RN * Anesthesia Preprocedure Evaluation - Rosendo Lubin CRNA - 11/01/2020 9:43 AM EST Images from the original note were not included. Pre-Anesthesia Evaluation for: Anabell Talley a 40 y.o. female. Procedure(s): ARTHRODESIS, ANT INTERBODY,DECOMPRESSION; CERVICAL BELOW C2 (WRVU 25) INSERTION INTERBODY BIOMECH DEV TO INTERVEBRAL DISC SPACE, EA INTERSPACE (WRVU 4.25) ALLOGRAFT FOR SPINE SURGERY ONLY; MORSELIZED (WRVU *) MODIFIER K2 MEDICAL - [place] Patient Active Problem List Diagnosis ??? Status post cervical spinal fusion Past Medical History: Diagnosis Date ??? Post-operative nausea and vomiting vomiting as a child last several surgeries has done well Past Surgical History: Procedure Laterality Date ??? MYRINGOTOMY Bilateral ??? 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 STAPEDES SURGERY Left tympanoplasty, anvil and mastoid work Social History Tobacco Use ??? Smoking status: Never Smoker ??? Smokeless tobacco: Never Used Substance Use Topics ??? Alcohol use: Yes Alcohol/week: 7.0 standard drinks Types: 7 Glasses of wine per week Social History Substance and Sexual Activity Drug Use Never Allergies Allergen Reactions ??? Clindamycin CIS - Rash Medications: MAR and/or home medications have been reviewed. Physical Exam: Patient Vitals for the past 24 hrs: Temp Pulse Resp BP SpO2 11/01/20 0837 36.8 ??C (98.2 ??F) 82 18 126/71 100 % Body mass index is 20.99 kg/m??. Height: 170.2 cm (5' 7) Weight: 60.8 kg (134 lb) Airway Assessment: Mallampati: III TM distance: >3 FB Neck ROM: full Cardiovascular Assessment: Rhythm: regular Rate: normal Pulmonary Assessment: unlabored breathing Dental Assessment: Misc Assessment: Patient is wearing No contact(s). Anesthesia Plan: ASA 2 general, with a(n) intravenous induction Post submandibular cleft repair, mandibular advancement. Nor sarahy intubation problems, will usea glidescope electively Informed Consent: Anesthetic plan and risks discussed with patient. Use of blood products discussed with patient who consented to blood products. PAT Clinic Note documented in this encounter Plan of Treatment Not on file documented as of this encounter Visit Diagnoses Not on filedocumented in this encounter Administered Medications Inactive Administered Medications - up to 3 most recent administrations Medication Order MAR Action Action Date Dose Rate Site ceFAZolin (Ancef) 2 g in dextrose 5% 100 mL infusion 2 g, Intravenous, ONCE, 1 dose, On Sat11/01/20 at 0845, Administer over 30 Minutes, To be administered upon arrival to the OR within one hour prior to incision., Day of Surgery (Day of Procedure), Indication for (Active or Suspected): Prophylaxis Given 11/01/2020 10:10 AM EST 2 g dexamethasone (Decadron) injection Intravenous, PRN, Starting on Sat11/01/20 at 1013, Until Sat11/01/20 at 1144, Anesthesia Intra-op, Routine Given 11/01/2020 10:13 AM EST 4 mg fentaNYL (pf) (50 mcg/mL) multi-dose injection Intravenous, PRN, Starting on Sat11/01/20 at 1003, Until Sat11/01/20 at 1144, Anesthesia Intra-op, Routine Given 11/01/2020 10:03 AM EST 100 mcg lactated ringers infusion 1,000 mL, at 50 mL/hr, Intravenous, CONTINUOUS, Starting on Sat11/01/20 at 0845, Until Sat11/01/20 at 1328, Day of Surgery (Day of Procedure) New Bag 11/01/2020 9:56 AM EST lidocaine (pf) (Xylocaine) (20 mg/mL) 2% injection syringe Intravenous, PRN, Starting on Sat11/01/20 at 1003, Until Sat11/01/20 at 1144, Anesthesia Intra-op, Routine Given 11/01/2020 10:03 AM EST 50 mg midazolam (pf) (Versed) (1 mg/mL) multi-dose injection Intravenous, PRN, Starting on Sat11/01/20 at 1003, Until Sat11/01/20 at 1144, Anesthesia Intra-op, Routine Given 11/01/2020 10:03 AM EST 2 mg ondansetron (pf) (Zofran) (2 mg/mL) injection Intravenous, PRN, Starting on Sat11/01/20 at 1013, Until Sat11/01/20 at 1144, Anesthesia Intra-op, Routine Given 11/01/2020 10:13 AM EST 4 mg propofoL (Diprivan) 10 mg/mL bolus injection (Anesthesia) Intravenous, PRN, Starting on Sat11/01/20 at 1003, Until 11/01/20 at 1144, Anesthesia Intra-op Given 11/01/2020 10:03 AM EST 250 mg propofoL (Diprivan) infusion Intravenous, CONTINUOUS PRN, Starting on Sat11/01/20 at 1012, Until Sat11/01/20 at 1144, Anesthesia Intra-op, Routine New Bag 11/01/2020 10:12 AM EST 25 mcg/kg/min 9.12 mL/hr rocuronium (Zemuron) 10 mg/mL injection Intravenous, PRN, Starting on Sat11/01/20 at 1003, Until 11/01/20 at 1144, Anesthesia Intra-op, Routine Given 11/01/2020 10:03 AM EST 40 mg sugammadex (Bridion) 100 mg/mL injection Intravenous, PRN, Starting on Sat11/01/20 at 1122, Until Sat11/01/20 at 1144, Anesthesia Intra-op, Routine Given 11/01/2020 11:22 AM EST 121.6 mg documented in this encounter Care Teams Riveter Hand Relationship Specialty Start Date End Date Sandy Hernadez APRN PCP - General Family Medicine 09/12/20 documented as of this encounter
--- OUTSIDE RECORDS SUMMARY | 2024-07-13 18:22 | XMS_ITS | Encounter Summary ---
Author Organization [facility] Address [address] [place] [address] Care Team Providers Care Dental Financial Coordinator Name Role Phone Jhony Naidu MD Primary Care Provider [phone] Encounter Details Date Type Department Care Team (Late st Contact Info) Description 10/05/2023 Lab Requisition [facility] Pathology & Laboratory Medicine - [facility] [address] [place] [address] Outr Resulting Lab, Provider Social History Tobacco Use Types Packs/Day [...] Procedure Name Priority Date/Time Associated Diagnosis Comments VITAMIN D (25,OH) Routine 10/05/2023 8:28 EST DHEA SULFATE Routine 10/05/2023 8:28 EST TESTOSTERONE, TOTAL AND FREE Routine 10/05/2023 8:28 EST T3 FREE Routine 10/05/2023 8:28 EST documented in this encounter Results * VITAMIN D (25,OH) (10/05/2023 8:28 EST) 25OH Vitamin D Tot 33 30 - 100 ng/mL 10/07/2023 12:20 EST [facility] Comment: Vitamin D 25,OH Interpretive Ranges: Deficiency: ??<10.0 ng/mL Insufficiency: ??10.0 - 30.0 ng/mL Sufficiency: ??30.0 - 100.0 ng/mL Toxicity: ??>100.0 ng/mL Blood VENOUS BLOOD / Unknown 10/05/2023 8:28 EST 10/06/2023 16:21 EST us Provider Outr Resulting Lab CHEMISTRY & BLOOD GA S ORDERABLES Final Result Performing Organization Address [facility] de Phone Number [facility] [address] [place] [address] * T3 FREE (10/05/2023 8:28 EST) T3, Free 3.4 2.8 - 5.3 pg/mL 10/06/2023 16:51 EST [facility] Blood VENOUS BLOOD / Unknown 10/05/2023 8:28 EST 10/06/2023 16:21 EST us Provider Outr Resulting Lab CHEMISTRY & BLOOD GA S ORDERABLES Final Result Performing Organization Address [facility]/ZIP Co de Phone Number [facility] [address] [place] [id number] * DHEA SULFATE (10/05/2023 8:28 EST) DHEA Sulfate 155 56 - 283 ug/dL 10/07/2023 9:08 EST [facility] Blood VENOUS BLOOD / Unknown 10/05/2023 8:28 EST 10/06/2023 16:21 EST us Provider Outr Resulting Lab CHEMISTRY & BLOOD GA S ORDERABLES Final Result Performing Organization Address [facility]/ZIP Co de Phone Number [facility] [address] [place] [address] * (ABNORMAL) TESTOSTERONE, TOTAL AND FREE (10/05/2023 8:28 EST) Testosterone 16 8 - 35 ng/dL 10/07/2023 8:10 EST [facility] Comment:The results of this assay can be falsley elevated due to the consumption of Biotin. Sex Hormone Bnd Glob 68.2 See Note nmol/L 10/07/2023 8:10 EST [facility] Comment: NOTE: ---- Reference Ranges for Females Pre-Menopausal: ?17.7 - 138.2 nmol/L Post-Menopausal: ?? 23.7 - 110.6 nmol/L The results of this assay can be falsely lowered due to the consumption of Biotin. Free Testosterone 0.2(L) 0.3 - 1.1 ng/dL 10/07/2023 8:10 EST [facility] Blood VENOUS BLOOD / Unknown 10/05/2023 8:28 EST 10/06/2023 16:21 EST Narrative [facility] - 10/07/2023 8:10 EST This test is not recommended in patients with plasma protein abnormalities. us Provider Outr Resulting Lab CHEMISTRY & BLOOD GA S ORDERABLES Final Result [facility] [address] [place] [address] documented in this encounter Visit Diagnoses Not on filedocumented in this encounter Care Teams Dental Financial Coordinator Relationship Specialty Start Date End Date Jhony Naidu MD [address] [place] [address] PCP - General 10/19/09 documented as of this encounter
--- OUTSIDE RECORDS SUMMARY | 2024-07-13 18:22 | XMS_ITS | Encounter Summary ---
Author Organization [facility] Address [address] [place] [address] Care Team Providers Care Blender Operator Name Role Phone Jhony Naidu MD Primary Care Provider [phone] Bisi Andrew MD Primary Care Provider Encounter Details Date Type Department Care Team (Late st Contact Info) Description 07/22/[address] [facility] conversion [address] [place] [address] Lindsay Myers MD [address] [place] [address] [address] [place] [address] Social History Tobacco Use Types [...] Priority Date/Time Associated Diagnosis Comments CYTOPATHOLOGY Routine 07/22/2000 0:00 EST documented in this encounter Results * CYTOPATHOLOGY (07/22/2000 0:00 EST) Pathology Report: CYTOPATHOLOGY REPORT Reports generated via electronic interface contain original data; however they are lacking the format of the original report. Caution should be taken when reading/interpreti ng unformatted reports. Name: ? ANABELL BURTON ? Accession #: ? [id number] : ? 1980 (Age: 20) ??F ?Collect Date: ? 07/22/2000 Location: ? [facility] ? Receive Date: ? 07/26/2000 Provider: ?LINDSAY MYERS MD Copy to: ? Specimen/Source: ?Conventional Pap Test, Cervix/Endocervix Last Menstrual Period: ? 07/15/00 Hormonal/Contracep tive Status: ? Yes ? SPECIMEN ADEQUACY ? Satisfactory for evaluation. GENERAL CATEGORIZATION ? Within Normal Limits ? Document reviewed and electronically signed by: ? JADEN Macias(ASCP) ? Report Date: ??08/01/2000 10:35 End of Report [facility] 07/22/2000 07/26/2000 us Lindsay Myers MD PATHOLOGY ORDERABLES Final Resul t [facility] [address] [place] [address] documented in this encounter Visit Diagnoses Not on filedocumented in this encounter Care Teams Blender Operator Relationship Specialty Start Date End Date Jhony Naidu MD [address] [place] [address] PCP - General 10/19/09 Bisi Andrew MD [address] [place] [address] PCP - General 10/17/09 10/18/09 documented as of this encounter
--- OUTSIDE RECORDS SUMMARY | 2024-07-13 18:22 | XMS_ITS | Clinical Summary ---
Author Organization [facility] Address [address] [place] [address] Care Team Providers Care Java Android Developer Name Role Phone Jhony Naidu MD Primary Care Provider [phone] Social History Tobacco Use Types Packs/Day Years Used Date Smoking Tobacco: Never Assessed Comments Unknown Sex and Gender Information Value Date Recorded Sex Assigned at Not on file Legal Sex Female 18:18 EST Gender Identity Not on file Sexual Orientation Not on file Plan of Treatment Health Maintenance Due Date Last Done Comments Hepatitis C Screen 1980 Hepatitis B Vaccine (1 of 3 - 19+ 3-dose series) 02/17 COVID-19 Vaccine ( season) 2023 Care Teams Java Android Developer Relationship Specialty Start Date End Date Jhony Naidu MD [address] [place] [address] PCP - General 10/19/09
--- OUTSIDE RECORDS SUMMARY | 2024-07-13 18:22 | XMS_ITS | Encounter Summary ---
Author Organization [facility] Address [address] [place] [address] Care Team Providers Care Branch Store Manager Name Role Phone Jhony Naidu MD Primary Care Provider [phone] Encounter Details Date Type Department Care Team (Late st Contact Info) Description 02/04/2015 Results Only [facility]- [facility]ISM [phone] Lindsay Myers MD [address] [place] [address] [address] [place] [address] Social History Tobacco Use Types Packs/Day Years [...] Diagnosis Comments PAP TEST- RESULT ONLY Routine 02/04/2015 0:00 EDT documented in this encounter Results * PAP TEST- RESULT ONLY (02/04/2015 0:00 EDT) Pathology Report: CYTOPATHOLOGY REPORT Reports generated via electronic interface contain original data; however they are lacking the format of the original report. Caution should be taken when reading/interpreti ng unformatted reports. Name: ? ANABELL BURTON ? Accession #: ? [id number] ? : ? 1980 (Age: 34) ??F ?Collect Date: ? 02/04/2015 ? Location: ? [facility] ? Receive Date: ? 02/07/2015 ? Provider: LINDSAY MYERS MD Copy to: ? Final Report SPECIMEN ADEQUACY ? Satisfactory for Evaluation - transformation zone component present GENERAL CATEGORIZATION ? Negative for Intraepithelial Lesion or Malignancy ?? Last Menstrual Period: 01/14/15 Hormonal/Contracep tive status: Intrauterine device: Mirena Other: Additional clinical information: Previous paps WNL 02/06, 02/07, 03/10 Specimen/Source: ??Pap Test, Cervix/Endocervix, ThinPrep Imaging System with manual evaluation Document reviewed and electronically signed by: ? Juan Dietrich, CT(ASCP) ? Report ??Date: 02/11/2015 13:39 HPV with Pap Test ? Date Ordered: ? 02/11/2015 ? Status: ?? Signed Out ?Date Complete: ? 02/15/2015 ? By: ??System Interface ? Date Reported: ? 02/15/2015 ? Interpretation RESULT: Negative for HPV. No E6 or E7 mRNA is detected from HPV types 16,18,31,33,35, 39,45,51,52,56,58, 59,66, and 68 by social media job titles mediated amplification. Comments Document reviewed and electronically signed by: ? System Interface ? Report date: 02/15/2015 By the signature above, the attending physician certifies that he/she has personally conducted a gross and/or microscopic examination of the described specimens and rendered or confirmed the above diagnosis. End of Report [facility] 02/04/2015 02/07/2015 us Lindsay Myers MD PATHOLOGY ORDERABLES Final Resul t [facility] [address] [place] [address] documented in this encounter Visit Diagnoses Not on filedocumented in this encounter Care Teams Branch Store Manager Relationship Specialty Start Date End Date Jhony Naidu MD [address] [place] [address] PCP - General 10/19/09 documented as of this encounter
--- OUTSIDE RECORDS SUMMARY | 2024-07-13 18:22 | XMS_ITS | Encounter Summary ---
Author Organization [facility] Address [address] [place] [address] Care Team Providers Care Industrial Engineering Intern Name Role Phone Jhony Naidu MD Primary Care Provider [phone] Encounter Details Date Type Department Care Team (Late st Contact Info) Description 10/28/2020 Lab Requisition [facility] Pathology & Laboratory Medicine - [address] [address] Outr Resulting Lab, Provider Social History Tobacco [...] Procedure Name Priority Date/Time Associated Diagnosis Comments ZZCOVID-19 TEST [facility] PCR Today 10/28/2020 14:01 EST COVID-19 TESTING Routine 10/28/2020 14:0 1 EST documented in this encounter Results * COVID-19 TEST [facility] PCR (10/28/2020 14:01 EST) Swab ENTIRE NASOPHARYNX / Unknown 10/28/2020 14:01 EST 10/28/2020 21:22 EST us Provider Outr Resulting Lab MICROBIOLOGY - GENER AL ORDERABLES Final Result Performing Organization Address City/[facility]/ZIP Co de Phone Number [facility] [address] [place] [address] * COVID-19 TESTING (10/28/2020 14:01 EST) COVID-19 rt-PCR Result Negative Negative 10/29/2020 12:04 EST [facility] Comment: This test has not been FDA cleared or approved. This test has been authorized by FDA under an EUA for use by authorized laboratories. This test has been authorized only for detection of nucleic acid from 2019-nCoV, not for any other viruses or pathogens. This test is only authorized for the duration of the declaration that circumstances exist justifying the authorization of emergency use of in vitro diagnostic tests for detection and/or diagnosis of 2019-nCoV under section 564(b)(1) of Act, 21 U.S.C ?? 360bbb-3(b) (1), unless the authorization is terminated or revoked sooner. Negative results do not preclude 2019-nCoV infection and should not be used as the sole basis for treatment or other patient management decisions. Negative results must be combined with clinical observations, patient history, and epidemiological information. Testing was performed using the zeyad SARS-CoV-2 assay ([employer] on the Zeyad 6800 System Performing Lab Zeyad 6800 [facility] 10/29/2020 12:04 EST [facility] Swab 10/28/2020 14:0 1 EST 10/28/2020 21:22 EST us Provider Outr Resulting Lab MICROBIOLOGY - GENER AL ORDERABLES Final Result Performing Organization Address City/[facility]/ZIP Co de Phone Number [facility] [address] [place] [address] documented in this encounter Visit Diagnoses Not on filedocumented in this encounter Care Teams Industrial Engineering Intern Relationship Specialty Start Date End Date Jhony Naidu MD [address] [place] [address] PCP - General 10/19/09 documented as of this encounter
--- OUTSIDE RECORDS SUMMARY | 2024-07-13 18:22 | XMS_ITS | Encounter Summary ---
Author Organization [facility] Address [address] [place] [address] Care Team Providers Care Tower Supervisor Name Role Phone Sandy Hernadez CYBER DEFENSE INCIDENT RESPONDER Primary Care Provider + Reason for Visit [...] Expiration Date Visits Re quested Visits Authorized [id number] 1 1 Encounter Details Date Type Department Care Team (Latest Contact Info) Description 11/01/2020 8:23 AM EST - 11/01/2020 4:48 PM [facility] Hospital Encounter Med Surg Unit at [facility] [address] [place] [id number] Joey Hoyos MD [address] [place] [address] Herniated nucleus pulposus, C6-7 Discharge Disposition: Home Social History Tobacco Use Types Packs/Day Years [...] six weeks after surgery with a Physician???s Assistant Customer Service Manager at the surgeon???s office. You will have a follow up appointment with the neurosurgeonin three months. If you have sutures that need to be removed, a suture removal appointment will be made for 10-14 days after surgery. If you had hardware, you may need x-rays done at [facility] prior to your follow up appointments. This [...] to stop taking it. ??? Only take fpji-rin-ekjknqk or prescription medicine for pain, discomfort or [...] 911. If you have questions, please call [facility] Neurology and Neurosurgery at [phone], during business hours of Saturday through Saturday from 8:00 a.m. until 4:00 p.m. In case of emergency during non-business hours, please call the same main number and follow the prompts to page the neurosurgeon regional clinical director. SMOKING CESSATION INFORMATION: ??? [place] QUITLINE: ??? [place] QUITLINE: ??? [email or web address] If you smoke, stop now! Smoking may impede healing. MAKE SURE YOU: ??? Understand these instructions. ??? Will seek medical care if you are feeling poor, or get worse. ??? Will call the surgeon???s office with any questions or concerns at : [phone] * Attachments The following attachments cannot be sent through Care Everywhere. * Cervical Spinal Fusion: Post-op (Setswana) documented in this encounter Medications at Time [...] Flowsheet for complete details. Report given to med/director surgical. Pt transported to their overnight room via [...] Miscellaneous Notes * Plan of Care - Kevni Brown RN - 11/01/2020 4:15 PM EST [...] Hoyos MD - 11/01/2020 10:20 AM EST [facility] Operative Note [facility] [address] [id number] Patient Name: Anabell Talley : [id number] MR#: [id number] Case Date: 11/01/2020 Case Scheduled Time: 1003 Surgeon: Surgeon(s) and Role: * Joey Hoyos MD - Primary * Vladislav Conti PA - Physician Assistant Customer Service Manager Preoperative diagnosis: HNP Postoperative diagnosis: HNP Procedure(s) (LRB): ARTHRODESIS, ANT INTERBODY,DECOMPRESSION; CERVICAL BELOW C2 (WRVU 25) (Bilateral) INSERTION INTERBODY BIOMECH DEV TO INTERVEBRAL DISC SPACE, EA INTERSPACE (WRVU 4.25) (Bilateral) ALLOGRAFT FOR SPINE SURGERY ONLY; MORSELIZED (WRVU *) (Bilateral) [address] (Bilateral) Actual procedure: C6/7 anterior discectomy [...] we proceed with operation. Procedure Description: Anabell aTlley was brought into the operating room. she was able to position herself on the operative table with the head in the colome gel horseshoe headrest. she was comfortable here and had no new symptoms. General endotracheal anesthetic was induced by the habilitation specialist. I did not manipulate the head or [...] beneath the longus coli. We then implanted Pa[place] distracting pins and confirmed their location fluoroscopically.The [...] prepared, it was sized for an appropriate [place] biomechanical screw fixated interbody device. A 7mm device was chosen and soaked in antibiotic solution. It was then packed with demineralized bone matrix and inserted under gentle distraction. The distraction was released. The security of the device was confirmed through direct interogation. The [place] pins were removed. The pin holes were filled with Floseal. The device was affixed with 3 14mm screws. These were torqued per the correctional officer lieutenant's specifications.The retractors were removed. The soft tissues [...] the duration of the operative session. The bilingual office assistant adequately prepped the operative site and [...] HNP Allograft For Spine Surgery Only Morselized (84459) 11/01/2020 9:55 AM EST HNP Insert Biomchn Dev Intervertebral Dsc Spc W/Arthrd (74232) 11/01/2020 9:55 AM EST HNP Arthrodesis, Ant Interbody,Decompression ; Cervical Below C2 (63287) 11/01/2020 9:55 AM EST HNP IMPLANTABLE DEVICES SCAN 11/01/2020 12:00 AM EST POCT URINE Routine 11/01/2020 documented in this encounter Results * XR Fluoro No Rad <1Hr - OR Use (11/01/2020 11:13 AM EST) Narrative RAD - 11/01/2020 11:57 AM EST This exam is auto-finalizing. No interpretation was done. Joey Hoyos MD IMG FLUORO ORDERABLE [place], [place] * SCAN DOC: IMPLANTABLE DEVICES (11/01/2020 12:00 AM EST) Unknown MEDIA MGR SCAN EXT O RDR/RSLT * POCT urine (11/01/2020) POC Urine HCG Negative Negative - Negative POC Control Internal Controls Acceptable 11/01/2020 Rosendo Lubin CRNA POINT OF CARE TEST ORDERABLES documented in this encounter Visit Diagnoses Diagnosis Herniated nucleus pulposus, C6-7 Displacement of cervical intervertebral disc without myelopathy Status post cervical spinal fusion Arthrodesis status documented in this encounter Admitting Diagnoses Diagnosis Status [...] Given 11/01/2020 12:22 PM EST 12.5 mcg ondansetron (pf) (Zofran) (2 mg/mL) injection 4-8 mg 4-8 mg, Intravenous, EVERY 8 HOURS PRN, Starting on 11/01/20 at 1329, Until 11/01/20 at 1848, Nausea, Vomiting, 4 mg, Oral, [...] Routine 1344 (Given - Provid er: Kevin rBown RN) Continuous Medication Order 10/30/2020 10/31/2020 11/01/2020 [...] PRN, 1 dose, Starting on Sat11/01/20 at 1329, Until Sat11/01/20 at 1848, Constipation, Administer if needed per [...] 1329, Until Tu11/01/20 at 1848, Nausea, Vomiting, If multiple antiemetics [...] Oral, EVERY 6 HOURS PRN, Starting on Tu11/01/20 at 1329, Until 11/01/20 at 1848, Nausea, [...] PRN, Starting on Sat11/01/20 at 1329, Until 11/01/20 at 1848, Nausea, Vomiting, 4 mg, Oral, [...] Routine documented in this encounter Care Teams Tower Supervisor Relationship Specialty Start Date End Date Sandy Hernadez APRN PCP - General Family Medicine 09/12/20 documented as of this encounter
--- OUTSIDE RECORDS SUMMARY | 2024-07-13 18:22 | XMS_ITS | Encounter Summary ---
Author Organization [facility] Address [address] [place] [address] Care Team Providers Care Bill Recapitulation Clerk Name Role Phone Unavailable Primary Care Provider Unavailabl e Encounter Details Date Type Department Care Team (Late st Contact Info) Description 05/22/1999 10:19 EDT Hospital Encounter [facility] - Other [address] [place] [address] Bisi Andrew MD [address] [place] [id number] Unknown, Provider, Social History Tobacco Use Types Packs/Day Years [...]
--- OUTSIDE RECORDS SUMMARY | 2024-07-13 18:22 | XMS_ITS | Continuity of Care Document ---
Author Organization [facility] Address [address] [place] [address] Care Team Providers Care Predator Control Trapper Name Role Phone [facility], Jhony Joshi Primary Care Physician Encounter [facility] Date(s): 01/17/24 - 01/17/[address] [address] Discharge Disposition: Home Allergies, Adverse Reactions, Alerts Substance Reaction Severity Status clindamycin Unknown Active clindamycin Skin rash Unknown Active Assessment and Plan Future Appointments Future Scheduled Tests Radiology* MG Mammo Screening Bilateral w/ Nelson 01/17/24 Immunizations Given and Recorded Vaccine Date Status Refusal Reason SARS-CoV-2 (COVID-19) mRNA-1273 vaccine 10/03/20 R ecorded SARS-CoV-2 (COVID-19) mRNA-1273 vaccine 09/05/20 R ecorded influenza virus vaccine, inactivated 08/10/10 Sal rded influenza virus vaccine, inactivated 06/02/09 Sal rded tetanus/diphth/pertuss (Tdap) adult/adol 08/10/10 Recorded Novel [id number], all formulation 06/02/09 Recorded tetanus-diphth toxoids (Td) adult/adol 09/02/97 Re corded rubella virus vaccine 09/02/00 Recorded varicella virus vaccine 09/02/00 Recorded Medications cloBAZam 0 Refill(s) Start Date: 11/16/22 Status: Ordered estradiol 0.0375 mg/24 hours twice weekly transdermal film, extended release See Instructions, change patch twice a week, # 24 patches, 3 Refill(s), Pharmacy: [id number], 62.4, kg, 01/17/24 14:41:00 EDT, Weight [...] team information Care Team Personnel Name: Elys[facility] SYSTEM[facility]ony MD Position: No Access Member Role: Primary Care Physician Address: Address: [id number] [place] [address] Care Team Related Persons Name: SILVIA BURTON Address: Home [address] [place] [phone] Address: Mailing [address] [place] [phone] Name: EUNICE KABA
--- OUTSIDE RECORDS SUMMARY | 2024-07-13 18:22 | XMS_ITS | Encounter Summary ---
Author Organization [facility] [place] [address] [place] [address] Care Team Providers Care Paper Mill Manager Name Role Phone Sandy Hernadez MELON PACKER Primary Care Provider + Reason for Visit [...] Expiration Date Visits Re quested Visits Authorized [id number] 1 1 Encounter Details Date Type Department Care Team (Late st Contact Info) Description 11/01/2020 9:50 AM EST Ancillary Procedure Radiology Xray at [facility] [place] [address] Social History Tobacco Use Types Packs/Day Years [...] OR USE Routine 11/01/2020 11:13 AM EST documented in this encounter Results * XR Fluoro No Rad <1Hr - OR Use (11/01/2020 11:13 AM EST) Narrative RAD - 11/01/2020 11:57 AM EST This exam is auto-finalizing. No interpretation was done. Joey Hoyos MD IMG FLUORO ORDERABLE [address] [place], [place] documented in this encounter Visit Diagnoses Not on filedocumented in this encounter Care Teams Paper Mill Manager Relationship Specialty Start Date End Date Sandy Hernadez, MELON PACKER PCP - General Family Medicine 09/12/20 documented as of this encounter
--- OUTSIDE RECORDS SUMMARY | 2024-07-13 18:22 | XMS_ITS | Encounter Summary ---
Author Organization [facility] Address [address] [place] [address] Care Team Providers Care Strategic Marketing Specialist Name Role Phone Jhony Naidu MD Primary Care Provider [phone] Encounter Details Date Type Department Care Team (Late st Contact Info) Description 12/09/2009 Results Only [facility] [phone] Julien Myers MD [address] [place] [address] [address] [place], [place] [id number] Social History Tobacco Use Types Packs/Day Years [...] Procedure Name Priority Date/Time Associated Diagnosis Comments [facility] DETAILED TWINS 12/09/2009 10 :35 EDT documented in this encounter Results * [facility] DETAILED TWINS (12/09/2009 10:35 EDT) Anatomical Region Laterality Modality Other 12/09/2009 10:3 5 EDT 12/09/2009 11:43 EDT Narrative 12/09/2009 11:43 EDT Indication: Multiple (Twin- ). History: Age: 29 years. : 1 Para: 0. Conception: IVF. No of embryos: 2, (5 days between fertilization and transfer). Current : Pre- data: Weight 155 lbs. Height 5 ft 7 ins. BMI 24.3. Dating: Transfer Date: 08/03/2009 EDC: 04/21/2010 GA by IVF: 21w0d Biometry Fetus 1: ??EDC: 04/25/2010 GA by Fetus 1: 20w3d Biometry Fetus 2: ??EDC: 04/27/2010 GA by Fetus 2: 20w1d Best Overall Assessment: 12/09/2009 EDC: 04/21/2010 Assessed GA: 21w0d The Best Overall Assessment is based on the transfer date. General Evaluation: Fetus 1: heart activity: Present. heart rate: 141 bpm. Presentation: breech, Spine inferior. Amniotic Fluid: Normal. Maximal vertical pocket 5.2 cm. Cord: 3 Vessels. Placenta: Anterior left. Grade 1. Fetus 2: heart activity: Present. heart rate: 132 bpm. Presentation: transverse, Spine anterior. Amniotic Fluid: Normal. Maximal vertical pocket 6.4 cm. Cord: 3 Vessels. Placenta: Anterior right. Grade 1. Anatomy Scan: Twin gestation. Chorionicity: Dichorionic-Diamniotic. Fetus 1: Biometry: BPD 47.2 mm 21st% 20w2d (19w5d to 20w6d) HC 176.2 mm 10th% 20w1d (18w4d to 21w4d) AC 156.0 mm 33rd% 20w5d (20w0d to 21w3d) FL 33.1 mm 20th% 20w2d (18w4d to 22w1d) OFD 62.4 mm 25th% 20w3d TCD 20.3 mm 18th% 20w0d HUM 33.2 mm 53rd% 21w1d RAD 27.5 mm 31st% 20w2d ULN 29.4 mm 30th% 20w1d TIB 27.4 mm 20th% 20w1d FIB 26.2 mm 13th% 19w1d VENTRp 6.7 mm n/a CM 5.1 mm 46th% NUCHAL FOLD 2.61 mm NASAL BONE 5.8 mm n/a HC/AC Ratio 1.129 ??28th% FL/AC Ratio 0.212 ??20th% BPD/FL Ratio 1.426 ??21st% BPD/OFD Ratio 0.756 ??18th% EFW (lbs/oz) 0 lbs 13 ozs EFW (g) 359 g ??23rd% Anatomy: Head: head shape appears normal. Brain: Cerebellum, choroid plexus, cisterna magna, lateral cerebral ventricles, midline falx and cavum septi pellucidi appear normal. Face: eyes normal, profile normal, nose normal, lip normal, palate normal. Spine: Cervical, thoracic, lumbar and sacral spine appear normal Neck / Skin: No neck masses seen. Thorax: No thoracic abnormalities detected. Heart: Four chamber heart and outflow tracts appear normal. Abdominal Wall: Normal cord insertion into the abdominal wall is seen. Gastrointestinal Tract: Stomach appears normal. Kidneys / Adrenal Glands: Bilateral kidneys appear normal. Bladder: bladder appears normal in size and shape. Genitalia: Female fetus. Extremities: Both upper and lower extremities are seen and appear normal. Skeleton: No evidence of skeletal abnormality detected. Fetus 2: Biometry: BPD 48.9 mm 40th% 20w6d (20w2d to 21w3d) HC 172.6 mm <5th% 19w6d (18w2d to 21w2d) AC 155.2 mm 31st% 20w5d (20w0d to 21w3d) FL 31.8 mm 10th% 19w6d (18w1d to 21w5d) OFD 59.3 mm <5th% 19w5d TCD 19.8 mm 11th% 19w4d HUM 31.4 mm 30th% 20w3d RAD 25.3 mm 11th% 19w3d ULN 26.7 mm 8th% 19w2d TIB 25.1 mm 5th% 19w0d FIB 25.8 mm 11th% 19w0d VENTRp 8.7 mm n/a CM 4.0 mm 14th% NUCHAL FOLD 2.56 mm NASAL BONE 6.7 mm n/a HC/AC Ratio 1.112 ??20th% FL/AC Ratio 0.205 ??9th% BPD/FL Ratio 1.538 ??71st% BPD/OFD Ratio 0.825 ??86th% EFW (lbs/oz) 0 lbs 12 ozs EFW (g) 345 g ??15th% Intertwin EFW discordance: 3.9 %. Anatomy: Head: head shape appears normal. Brain: Cerebellum, choroid plexus, cisterna magna, lateral cerebral ventricles, midline falx and cavum septi pellucidi appear normal. Face: eyes normal, profile normal, nose normal, lip normal, palate normal. Spine: Cervical, thoracic, lumbar and sacral spine appear normal Neck / Skin: No neck masses seen. Thorax: No thoracic abnormalities detected. Heart: Four chamber heart and outflow tracts appear normal. Abdominal Wall: Normal cord insertion into the abdominal wall is seen. Gastrointestinal Tract: Stomach appears normal. Kidneys / Adrenal Glands: Bilateral kidneys appear normal. Bladder: bladder appears normal in size and shape. Genitalia: Male fetus. Extremities: Both upper and lower extremities are seen and appear normal. Skeleton: No evidence of skeletal abnormality detected. Summary of Ultrasound Findings: Transabdominal US. U/S machine: [employer] e8. U/S view: good. Genetic Sonogram: Fetus 1: measured FL: 33.1 mm exp. FL: 33.3 mm measured HUM: 33.2 mm exp. HUM: 32.1 mm ratio FL/exp.FL: 0.99 ratio HUM/exp.HUM: 1.03 Nuchal fold normal. Pyelectasis absent. No hyperechogenic bowel. Echogenic intracardiac focus absent. Additional Marker: Nasal bone length: normal. Fetus 2: measured FL: 31.8 mm exp. FL: 34.8 mm measured HUM: 31.4 mm exp. HUM: 33.6 mm ratio FL/exp.FL: 0.91 ratio HUM/exp.HUM: 0.93 Maternal Structures: Uterus, cervix and both ovaries appear normal. Report Summary: Impression: [id number] Obstetrical ultrasound with and maternal evaluation, including detailed anatomic examination, twins This is a dichorionic, diamniotic twin gestation. Twin A presenting breech on maternal left. Biometry is consistent with IVF transfer dating. Anatomy appears normal as noted above; however, ultrasound cannot detect all anomalies. As per the [facility] guidelines, the following were evaluated and were normal: the cerebellum (including lobes and vermis), facial profile, the chest (including examination for masses, effusion, integrity of both sides of the diaphragm and lung parenchyma), abdomen for ascites, 12-long bones with normal architecture/position of limbs, hands and feet, placental insertion site of the umbilical cord and placenta for masses. The amniotic fluid volume is normal with a freely moving membrane. There is trunk and extremity movement noted. Twin A's risk for Down syndrome is probably reduced by about 50%, but the risk reduction after first trimester screening is not as well characterized as for unscreened patients. Twin B is transverse on maternal right, with head at maternal midline. Biometry is consistent with IVF dating. Anatomy appears normal as noted above; however, ultrasound cannot detect all anomalies. As per the [facility] guidelines, the following were evaluated and were normal: the cerebellum (including lobes and vermis), facial profile, the chest (including examination for masses, effusion, integrity of both sides of the diaphragm and lung parenchyma), abdomen for ascites, 12-long bones with normal architecture/position of limbs, hands and feet, placental insertion site of the umbilical cord and placenta for masses. The amniotic fluid volume is normal. There is trunk and extremity movement noted. Twin B's risk for Down syndrome is probably reduced by about 50%, but the risk reduction after first trimester screening is not as well characterized as for unscreened patients. Recommendations: Follow-up with growth scans every 4 weeks. This follow-up has not been scheduled. Procedure Note 12/09/2009 Indication: Multiple (Twin- ). History: Age: 29 years. : 1 Para: 0. Conception: IVF. No of embryos: 2, (5 days between fertilization and transfer). Current : Pre- data: Weight 155 lbs. Height 5 ft 7 ins. BMI 24.3. Dating: Transfer Date: 08/03/2009 EDC: 04/21/2010 GA by IVF: 21w0d Biometry Fetus 1: EDC: 04/25/2010 GA by Fetus 1: 20w3d Biometry Fetus 2: EDC: 04/27/2010 GA by Fetus 2: 20w1d Best Overall Assessment: 12/09/2009 EDC: 04/21/2010 Assessed GA: 21w0d The Best Overall Assessment is based on the transfer date. General Evaluation: Fetus 1: heart activity: Present. heart rate: 141 bpm. Presentation: breech, Spine inferior. Amniotic Fluid: Normal. Maximal vertical pocket 5.2 cm. Cord: 3 Vessels. Placenta: Anterior left. Grade 1. Fetus 2: heart activity: Present. heart rate: 132 bpm. Presentation: transverse, Spine anterior. Amniotic Fluid: Normal. Maximal vertical pocket 6.4 cm. Cord: 3 Vessels. Placenta: Anterior right. Grade 1. Anatomy Scan: Twin gestation. Chorionicity: Dichorionic-Diamniotic. Fetus 1: Biometry: BPD 47.2 mm 21st% 20w2d (19w5d to 20w6d) HC 176.2 mm 10th% 20w1d (18w4d to 21w4d) AC 156.0 mm 33rd% 20w5d (20w0d to 21w3d) FL 33.1 mm 20th% 20w2d (18w4d to 22w1d) OFD 62.4 mm 25th% 20w3d TCD 20.3 mm 18th% 20w0d HUM 33.2 mm 53rd% 21w1d RAD 27.5 mm 31st% 20w2d ULN 29.4 mm 30th% 20w1d TIB 27.4 mm 20th% 20w1d FIB 26.2 mm 13th% 19w1d VENTRp 6.7 mm n/a CM 5.1 mm 46th% NUCHAL FOLD 2.61 mm NASAL BONE 5.8 mm n/a HC/AC Ratio 1.129 28th% FL/AC Ratio 0.212 20th% BPD/FL Ratio 1.426 21st% BPD/OFD Ratio 0.756 18th% EFW (lbs/oz) 0 lbs 13 ozs EFW (g) 359 g 23rd% Anatomy: Head: head shape appears normal. Brain: Cerebellum, choroid plexus, cisterna magna, lateral cerebral ventricles, midline falx and cavum septi pellucidi appear normal. Face: eyes normal, profile normal, nose normal, lip normal, palate normal. Spine: Cervical, thoracic, lumbar and sacral spine appear normal Neck / Skin: No neck masses seen. Thorax: No thoracic abnormalities detected. Heart: Four chamber heart and outflow tracts appear normal. Abdominal Wall: Normal cord insertion into the abdominal wall is seen. Gastrointestinal Tract: Stomach appears normal. Kidneys / Adrenal Glands: Bilateral kidneys appear normal. Bladder: bladder appears normal in size and shape. Genitalia: Female fetus. Extremities: Both upper and lower extremities are seen and appear normal. Skeleton: No evidence of skeletal abnormality detected. Fetus 2: Biometry: BPD 48.9 mm 40th% 20w6d (20w2d to 21w3d) HC 172.6 mm <5th% 19w6d (18w2d to 21w2d) AC 155.2 mm 31st% 20w5d (20w0d to 21w3d) FL 31.8 mm 10th% 19w6d (18w1d to 21w5d) OFD 59.3 mm <5th% 19w5d TCD 19.8 mm 11th% 19w4d HUM 31.4 mm 30th% 20w3d RAD 25.3 mm 11th% 19w3d ULN 26.7 mm 8th% 19w2d TIB 25.1 mm 5th% 19w0d FIB 25.8 mm 11th% 19w0d VENTRp 8.7 mm n/a CM 4.0 mm 14th% NUCHAL FOLD 2.56 mm NASAL BONE 6.7 mm n/a HC/AC Ratio 1.112 20th% FL/AC Ratio 0.205 9th% BPD/FL Ratio 1.538 71st% BPD/OFD Ratio 0.825 86th% EFW (lbs/oz) 0 lbs 12 ozs EFW (g) 345 g 15th% Intertwin EFW discordance: 3.9 %. Anatomy: Head: head shape appears normal. Brain: Cerebellum, choroid plexus, cisterna magna, lateral cerebral ventricles, midline falx and cavum septi pellucidi appear normal. Face: eyes normal, profile normal, nose normal, lip normal, palate normal. Spine: Cervical, thoracic, lumbar and sacral spine appear normal Neck / Skin: No neck masses seen. Thorax: No thoracic abnormalities detected. Heart: Four chamber heart and outflow tracts appear normal. Abdominal Wall: Normal cord insertion into the abdominal wall is seen. Gastrointestinal Tract: Stomach appears normal. Kidneys / Adrenal Glands: Bilateral kidneys appear normal. Bladder: bladder appears normal in size and shape. Genitalia: Male fetus. Extremities: Both upper and lower extremities are seen and appear normal. Skeleton: No evidence of skeletal abnormality detected. Summary of Ultrasound Findings: Transabdominal US. U/S machine: [employer] e[employer]. U/S view: good. Genetic Sonogram: Fetus 1: measured FL: 33.1 mm exp. FL: 33.3 mm measured HUM: 33.2 mm exp. HUM: 32.1 mm ratio FL/exp.FL: 0.99 ratio HUM/exp.HUM: 1.03 Nuchal fold normal. Pyelectasis absent. No hyperechogenic bowel. Echogenic intracardiac focus absent. Additional Marker: Nasal bone length: normal. Fetus 2: measured FL: 31.8 mm exp. FL: 34.8 mm measured HUM: 31.4 mm exp. HUM: 33.6 mm ratio FL/exp.FL: 0.91 ratio HUM/exp.HUM: 0.93 Maternal Structures: Uterus, cervix and both ovaries appear normal. Report Summary: Impression: [id number] Obstetrical ultrasound with and maternal evaluation, including detailed anatomic examination, twins This is a dichorionic, diamniotic twin gestation. Twin A presenting breech on maternal left. Biometry is consistent with IVF transfer dating. Anatomy appears normal as noted above; however, ultrasound cannot detect all anomalies. As per the [facility] guidelines, the following were evaluated and were normal: the cerebellum (including lobes and vermis), facial profile, the chest (including examination for masses, effusion, integrity of both sides of the diaphragm and lung parenchyma), abdomen for ascites, 12-long bones with normal architecture/position of limbs, hands and feet, placental insertion site of the umbilical cord and placenta for masses. The amniotic fluid volume is normal with a freely moving membrane. There is trunk and extremity movement noted. Twin A's risk for Down syndrome is probably reduced by about 50%, but the risk reduction after first trimester screening is not as well characterized as for unscreened patients. Twin B is transverse on maternal right, with head at maternal midline. Biometry is consistent with IVF dating. Anatomy appears normal as noted above; however, ultrasound cannot detect all anomalies. As per the [facility] guidelines, the following were evaluated and were normal: the cerebellum (including lobes and vermis), facial profile, the chest (including examination for masses, effusion, integrity of both sides of the diaphragm and lung parenchyma), abdomen for ascites, 12-long bones with normal architecture/position of limbs, hands and feet, placental insertion site of the umbilical cord and placenta for masses. The amniotic fluid volume is normal. There is trunk and extremity movement noted. Twin B's risk for Down syndrome is probably reduced by about 50%, but the risk reduction after first trimester screening is not as well characterized as for unscreened patients. Recommendations: Follow-up with growth scans every 4 weeks. This follow-up has not been scheduled. Julien Myers MD [facility] ORDERABLES Final Resu lt documented in this encounter Visit Diagnoses Not on filedocumented in this encounter Care Teams Strategic Marketing Specialist Relationship Specialty Start Date End Date Jhony Naidu MD [address] [place] [address] PCP - General 10/19/09 documented as of this encounter
--- OUTSIDE RECORDS SUMMARY | 2024-07-13 18:22 | XMS_ITS | Encounter Summary ---
Author Organization [facility] Address [address] [place] [address] Care Team Providers Care Railroad Track Mechanic Name Role Phone Jhony Naidu MD Primary Care Provider [phone] Bisi Andrew MD Primary Care Provider + [phone] Encounter Details Date Type Department Care Team (Late st Contact Info) Description 08/22/2001 Results Only [facility] [place] conversion [address] [place] [address] Lindsay Myers MD [address] [place] [address] [address] [place] [address] Social History Tobacco Use Types [...] Priority Date/Time Associated Diagnosis Comments CYTOPATHOLOGY Routine 08/22/2001 0:00 EST documented in this encounter Results * CYTOPATHOLOGY (08/22/2001 0:00 EST) Pathology Report: CYTOPATHOLOGY REPORT Reports generated via electronic interface contain original data; however they are lacking the format of the original report. Caution should be taken when reading/interpreti ng unformatted reports. Name: ? ANABELL BURTON ? Accession #: ? [id number] : ? 1980 (Age: 21) ??F ?Collect Date: ? 08/22/2001 Location: ? [facility] ? Receive Date: ? 08/28/2001 Provider: ?LINDSAY MYERS MD Copy to: ? Specimen/Source: ?ThinPrep Pap Test, Cervix/Endocervix Last Menstrual Period: ? 08/17/01 Hormonal/Contracep tive Status: ? Yes Other: ? Client ID#: [id number] ? SPECIMEN ADEQUACY ? Satisfactory for Evaluation - transformation zone component present GENERAL CATEGORIZATION ? Negative for Intraepithelial Lesion or Malignancy ? Document reviewed and electronically signed by: ? JADEN Gomez(ASCP) ? Report Date: ??09/04/2001 14:01 End of Report [facility] 08/22/2001 08/28/2001 us Lindsay Myers MD PATHOLOGY ORDERABLES Final Resul t [facility] [address] [place] [address] documented in this encounter Visit Diagnoses Not on filedocumented in this encounter Care Teams Railroad Track Mechanic Relationship Specialty Start Date End Date Jhony Naidu MD [address] [place] [address] PCP - General 10/19/09 Bisi Andrew MD [address] [facility] [place] [address] PCP - General 10/17/09 10/18/09 documented as of this encounter
--- OUTSIDE RECORDS SUMMARY | 2024-07-13 18:22 | XMS_ITS | Encounter Summary ---
Author Organization [facility] Address [address] [place] [address] Care Team Providers Care Religion Professor Name Role Phone Jhony Naidu MD Primary Care Provider [phone] Bisi Andrew MD Primary Care Provider + [phone] Encounter Details Date Type Department Care Team (Late st Contact Info) Description 12/08/2004 Results Only [facility] [place] conversion [address] [place] [address] Lindsay Myers MD [address] [place] [address] [address] [place] [address] Social History Tobacco Use Types [...] Priority Date/Time Associated Diagnosis Comments CYTOPATHOLOGY Routine 12/08/2004 0:00 EDT documented in this encounter Results * CYTOPATHOLOGY (12/08/2004 0:00 EDT) Pathology Report: CYTOPATHOLOGY REPORT Reports generated via electronic interface contain original data; however they are lacking the format of the original report. Caution should be taken when reading/interpreti ng unformatted reports. Name: ? ANABELL BURTON ? Accession #: ? [id number] : ? 1980 (Age: 24) ??F ?Collect Date: ? 12/08/2004 Location: ? [facility] ? Receive Date: ? 12/11/2004 Provider: ?LINDSAY MYERS MD Copy to: ? Specimen/Source: ?ThinPrep Pap Test, Cervix/Endocervix Last Menstrual Period: ? 11/25/04 Hormonal/Contracep tive Status: ? Yes Other: ? HPVA - HPV testing requested if ASC-US on the current ThinPrep Pap test. ? SPECIMEN ADEQUACY ? Satisfactory for Evaluation - transformation zone component present GENERAL CATEGORIZATION ? Negative for Intraepithelial Lesion or Malignancy INTERPRETATION ? Shift in marianna present suggestive of bacterial vaginosis. ? Document reviewed and electronically signed by: ? JADEN Rice(ASCP) ? Report Date: ??12/15/2004 15:55 End of Report [facility] 12/08/2004 12/11/2004 us Lindsay Myers MD PATHOLOGY ORDERABLES Final Resul t [facility] [address] [place] [address] documented in this encounter Visit Diagnoses Not on filedocumented in this encounter Care Teams Religion Professor Relationship Specialty Start Date End Date Jhony Naidu MD [address] [place] [address] PCP - General 10/19/09 Bisi Andrew MD [address] [place] [address] [place] [address] PCP - General 10/17/09 10/18/09 documented as of this encounter
--- OUTSIDE RECORDS SUMMARY | 2024-07-13 18:22 | XMS_ITS | Encounter Summary ---
Author Organization [facility] Address [address] [place] [address] Care Team Providers Care Electrical Instrument Repairer Name Role Phone Jhony Naidu MD Primary Care Provider [phone] Bisi Andrew MD Primary Care Provider + [phone] Encounter Details Date Type Department Care Team (Late st Contact Info) Description 09/17/2003 Results Only [facility] [place] conversion [address] [place] [address] Lindsay Myers MD [address] [place] [address] [address] [place] [address] Social History Tobacco Use Types [...] Priority Date/Time Associated Diagnosis Comments CYTOPATHOLOGY Routine 09/17/2003 0:00 EST documented in this encounter Results * CYTOPATHOLOGY (09/17/2003 0:00 EST) Pathology Report: CYTOPATHOLOGY REPORT Reports generated via electronic interface contain original data; however they are lacking the format of the original report. Caution should be taken when reading/interpreti ng unformatted reports. Name: ? ANABELL BURTON ? Accession #: ? [id number] : ? 1980 (Age: 23) ??F ?Collect Date: ? 09/17/2003 Location: ? [facility] ? Receive Date: ? 09/20/2003 Provider: ?LINDSAY MYERS MD Copy to: ? Specimen/Source: ?ThinPrep Pap Test, Cervix/Endocervix Last Menstrual Period: ? 09/07/03 Hormonal/Contracep tive Status: ? Yes Other: ? HPVA - HPV testing requested if ASC-US on the current ThinPrep Pap test. ? SPECIMEN ADEQUACY ? Satisfactory for Evaluation - transformation zone component present GENERAL CATEGORIZATION ? Negative for Intraepithelial Lesion or Malignancy ? Document reviewed and electronically signed by: ? JADEN Campo(ASCP) ? Report Date: ??09/24/2003 09:38 End of Report [facility] 09/17/2003 09/20/2003 us Lindsay Myers MD PATHOLOGY ORDERABLES Final Resul t [facility] [address] [place] [address] documented in this encounter Visit Diagnoses Not on filedocumented in this encounter Care Teams Electrical Instrument Repairer Relationship Specialty Start Date End Date Jhony Naidu MD [address] [place] [address] PCP - General 10/19/09 Bisi Andrew MD [address] [place] [address] [place] [address] PCP - General 10/17/09 10/18/09 documented as of this encounter
--- OUTSIDE RECORDS SUMMARY | 2024-07-13 18:22 | XMS_ITS | Encounter Summary ---
Author Organization [facility] [place] [address] [place] [address] Care Team Providers Care Invasive Cardiologist Name Role Phone Sandy Hernadez CALLY Primary Care Provider + Encounter Details Date Type Department Care Team (Late st Contact Info) Description 10/25/2020 11:15 AM EST Telephone Pre-Admission Testing at [facility] [address] [facility] [place] [id number] Social History Tobacco Use Types Packs/Day Years Used Date Smoking Tobacco: Never Smokeless Tobacco: Never Alcohol Use Standard Drinks/Week Comments Yes 7 (1 standard drink = 0.6 oz pur e alcohol) Sex and Gender Information Value Date Recorded Sex Assigned at Not on file Gender Identity Not on file Sexual Orientation Not on file documented as of this encounter Progress Notes * Lorraine Torres RN - 10/25/2020 11:36 AM ESTSummary: covid EXPOSURE: Have you been in contact with anyone suspected of or confirmed to have COVID-19 in the PAST 14 DAYS? []Yes [x]No Have you traveled outside the [facility] in the PAST 14 DAYS? []Yes [x]No COVID-19 SCREENING: In the past 14 days, have you had any of the following symptoms: [] Fever (subjective or documented fever) [] Chills [] Cough [] Shortness of breath or difficulty breathing [] Fatigue [] Muscle or body aches [] Headache [] New loss of taste or smell [] Sore throat [] Nausea or vomiting [] Diarrhea [x]NONE OF THE ABOVE Vaccination complete last one Oct 03 2020 documented in this encounter Plan of Treatment Not on file documented as of this encounter Visit Diagnoses Not on filedocumented in this encounter Care Teams Invasive Cardiologist Relationship Specialty Start Date End Date Sandy Hernadez APRN PCP - General Family Medicine 09/12/20 documented as of this encounter
--- OUTSIDE RECORDS SUMMARY | 2024-07-13 18:22 | XMS_ITS | Encounter Summary ---
Author Organization [facility] Address [address] [place] [address] Care Team Providers Care Cocktail Server Name Role Phone Jhony Naidu MD Primary Care Provider [phone] Bisi Andrew MD Primary Care Provider [phone] Encounter Details Date Type Department Care Team (Late st Contact Info) Description 09/04/2002 Results Only [facility] conversion [address] [place] [address] Lindsay Myers MD [address] [place] [address] [address] [place] [address] Social History Tobacco Use Types [...] Priority Date/Time Associated Diagnosis Comments CYTOPATHOLOGY Routine 09/04/2002 0:00 EST documented in this encounter Results * CYTOPATHOLOGY (09/04/2002 0:00 EST) Pathology Report: CYTOPATHOLOGY REPORT Reports generated via electronic interface contain original data; however they are lacking the format of the original report. Caution should be taken when reading/interpreti ng unformatted reports. Name: ? ANABELL BURTON ? Accession #: ? [id number] : ? 1980 (Age: 22) ??F ?Collect Date: ? 09/04/2002 Location: ? [facility] ? Receive Date: ? 09/07/2002 Provider: ?LINDSAY MYERS MD Copy to: ? Specimen/Source: ?ThinPrep Pap Test, Cervix/Endocervix Last Menstrual Period: ? 08/12/02 Hormonal/Contracep tive Status: ? Yes Other: ? HPVA - HPV testing requested if ASC-US on the current ThinPrep Pap test. ? SPECIMEN ADEQUACY ? Satisfactory for Evaluation - transformation zone component present GENERAL CATEGORIZATION ? Negative for Intraepithelial Lesion or Malignancy ? Document reviewed and electronically signed by: ? JADEN Doll(ASCP) ? Report Date: ??09/08/2002 07:45 End of Report [facility] 09/04/2002 09/07/2002 us Lindsay Myers MD PATHOLOGY ORDERABLES Final Resul t [facility] [address] [place] [address] documented in this encounter Visit Diagnoses Not on filedocumented in this encounter Care Teams Cocktail Server Relationship Specialty Start Date End Date Jhony Naidu MD [address] [place] [address] PCP - General 10/19/09 Bisi Andrew MD [address] [facility] [place] [address] PCP - General 10/17/09 10/18/09 documented as of this encounter
--- OUTSIDE RECORDS SUMMARY | 2024-07-13 18:22 | XMS_ITS | Encounter Summary ---
Author Organization [facility] Address [address] [place] [address] Care Team Providers Care Menhaden Vessel Pilot Name Role Phone Jhony Naidu MD Primary Care Provider [phone] Encounter Details Date Type Department Care Team (Late st Contact Info) Description 10/19/2009 Orders Only [facility] [phone] Julien Myers MD [address] [place] [address] [address] [place], [place] [id number] Social History Tobacco Use Types Packs/Day Years [...] Procedure Name Priority Date/Time Associated Diagnosis Comments CORRECTION ULTRASCREEN TWINS (INCLUDES SEQUENTIAL SCREEN) 10/19/2009 15:51 EST documented in this encounter Results * CORRECTION ULTRASCREEN TWINS (10/19/2009 15:51 EST) Anatomical Region Laterality Modality Other 10/19/2009 15:5 1 EST 10/20/2009 8:48 EST Narrative 10/20/2009 8:48 EST Please refer to the separate [facility] report. ??Contact Maternal Medicine. Procedure Note 10/20/2009 Please refer to the separate [facility] report. Contact Maternal Medicine. us Julien Myers MD [facility] ORDERABLES Final Resu lt documented in this encounter Visit Diagnoses Not on filedocumented in this encounter Care Teams Menhaden Vessel Pilot Relationship Specialty Start Date End Date Jhony Naidu MD [address] [place] [address] PCP - General 10/19/09 documented as of this encounter
--- OUTSIDE RECORDS SUMMARY | 2024-07-13 18:22 | XMS_ITS | Encounter Summary ---
Author Organization [facility] Address [address] [place] [address] Care Team Providers Care Handbag Parts Cutter Name Role Phone Jhony Naidu MD Primary Care Provider [phone] Encounter Details Date Type Department Care Team (Late st Contact Info) Description 07/27/[address] [facility]ology [facility] - [facility] [address] [place] [address] Outr Resulting Lab, Provider Social History Tobacco Use Types Packs/Day Years Used Date Smoking Tobacco: Never Assessed Comments Unknown Sex and Gender Information Value Date Recorded Sex Assigned at Not on file Legal Sex Female 18:18 EST Gender Identity Not on file Sexual Orientation Not on file documented as of this encounter Plan of Treatment Scheduled Orders Name Type Priority Associated Diagnoses Orde r Schedule PAP TEST Pathology Routine Ordered: 07/27 documented as of this encounter Visit Diagnoses Not on filedocumented in this encounter Care Teams Handbag Parts Cutter Relationship Specialty Start Date End Date Jhony Naidu MD [address] [place] [address] PCP - General 10/19/09 documented as of this encounter
== END 2024-07-13 18:21 | disposition home or self-care (01) ==
LOC: NCHCN 18:20
PROVIDERS: PCP Nurse Practitioner Family; Visit Provider Nurse Practitioner Family
DX: L82.0 Inflamed seborrheic keratosis (principal)
CPT/HCPCS: 88305